=== PATIENT | female | born 1980 | race Caucasian/White ===

== ENCOUNTER 2018-01-19 16:35 | Emergency (ER) | payer SELFPAY ==
[2018-01-19 16:37] VITALS: BP 102/67; PULSE 115; RESP 16; TEMP 36.9; BMI 22.9
--- NOTE | 2018-01-19 17:00 | ED.DCSUM_ITS ---
History of Present Illness Chief Complaint: Complaint Informant: Patient Onset: Weeks - 1 Context: Gradual Onset Timing: Continuous Quality: burning dysuria Current Severity: Moderate Maximum Severity: Moderate Worsened by: urinating Associated Symptoms: left side pain, nausea, back pain Narrative: Patient started having dysuria and frequency about a week ago, she did not see anyone for it or take any antibiotics, she states she then gradually started developing left side pain that goes into her back, was much worse last night and it is today, as well as nausea. No fevers that she knows of. No history of abdominal surgeries. States that the pain is constant and not colicky although it has let up today. 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 She denies any vaginal discharge or other symptoms there now. - Past Medical History (1) Asthma Status: Chronic Past Medical History - Allergies and Home Meds Allergies/Adverse Reactions: Allergies No Known Allergies Allergy (Verified 06/08/17 19:35) Home Medications: Home Medications Medication Instructions Recorded Albuterol Aerosols [Ventolin 2.5 mg INHALATION Q4H PRN PRN 08/30/16 Aerosols] Albuterol Inhaler [Ventolin Hfa 2 puff INHALATION Q4H PRN PRN 08/30/16 (SP)] Mometasone Furoate [Asmanex 220 200 mcg INHALATION BID 08/30/16 mcg Twisthaler] Mometasone Furoate [Asmanex] 220 mcg IH Q12H #1 aer.pow.[email or web address] 01/19/18 Phenazopyridine [Pyridium] 100 mg PO TID #6 tab 01/19/18 Smz/Tmp Ds [Bactrim Ds] 1 tab PO BID #28 tab 01/19/18 Primary Care Physician: Nichole Morse NP-C [Primary Care Provider] - 3-5 Days if not improving Surgical History: no surgical history Smoking Status: Never smoker Review of Systems All systems negative except as indicated Gastrointestinal: Reports: Abdominal pain, Nausea, Diarrhea - x 3-4d. Denies: Vomiting, Melena, Hematochezia Genitourinary: Reports: Dysuria, Frequency. Denies: Hematuria Musculoskeletal: Reports: Back pain Physical Exam Vital Signs/Narrative: Vital Signs Temp Pulse Resp BP 01/19/18 16:37 98.4 F 115 H 16 102/67 Inital Vital Signs reviewed: Yes General: Well nourished, Well developed, - - NAD Head: Normocephalic, Atraumatic Eyes: Perrl, EOMI Neck: Supple, Nontender Cardiovascular: Regular rate, Regular rhythm, No murmurs, Tachycardia - mild Respiratory: No distress, CTA bilaterally, Chest nontender Abdomen: Soft, Nondistended, Normal bowel sounds, Tender - suprapubic only. Negative for: Guarding, Rebound tenderness Back: Nontender, Normal Inspection. Negative for: CVA tenderness, Spinal tenderness Skin: Normal color, No rash Neurological: Alert, Oriented x3, Cranial nerves II-XII grossly intact, Normal Strength, Normal Sensation, Normal Gait Psychological: Normal affect Diagnostic/Tx/Re-eval - Medical Decision Making is negative. Urinalysis is consistent with infection. Given her symptoms and history, I suspect this is all pyelonephritis. All of her symptoms started with urinary symptoms. I do not think she needs testing to look for other problems right now, such as diverticulitis to cause left lower quadrant discomfort, she has no tenderness in that area just in the suprapubic region. She is relatively well-appearing, has not been vomiting, can tolerate oral tablets, and is not . Outpatient treatment is reasonable, will start her on a two-week course of Bactrim and send a culture. Given Zofran, Toradol, and a shot of Rocephin here prior to discharge. Advise close outpatient follow-up or returning if worse or not improving after 3 or 4 days. She is comfortable with that plan. In addition, she states she has asthma and is out of her Asmanex inhaler and asking for a refill prescription. ED Disposition - Plan for ED Patient: Disposition: Home or Assisted Living Chief Complaint: Complaint Diagnosis: Pyelonephritis, Encounter for medication refill Instructions: ED Kidney Infec Female Prescriptions: Mometasone Furoate [Asmanex] 220 mcg IH Q12H #1 aer.pow.ba Smz/Tmp Ds [Bactrim Ds] 1 tab PO BID #28 tab Phenazopyridine [Pyridium] 100 mg PO TID #6 tab Referrals: Nichole Morse NP-C [Primary Care Provider] - 3-5 Days if not improving
[2018-01-19] MEDS: Ondansetron ODT 4 MG Tablet 8 MG PO (17:04)
[2018-01-19 17:24] LABS: Mucous, Urine 0 SEEN /hpf (<or=2+)
[2018-01-19 17:27] LABS: Color, Urine Yellow (Yellow); Glucose, Dipstick Normal (Normal); Ketone-Dipstick 5 mg/dl (Negative); Leukocyte Esterase-Dipstick 500 /ul (Negative); Nitrite-Dipstick Positive (Negative); Occult Blood-Urine 150 /ul (Negative); Protein-Dipstick 100 mg/dl (Negative); Urine Bilirubin Dipstick Negative (Negative); Urine Clarity Cloudy (Clear); Urine Urobilinogen Normal (Normal)
[2018-01-19 17:32] LABS: Internal QC Validated? YES +Cl - CLEAR BKGD; Pregnancy, Urine Negative Negative
[2018-01-19 18:06] LABS: Bacteria 1+ /hpf (None Seen); Red Blood Cells-Urine 50-100 SEEN /hpf (0-5); Squamous Epithelial Cells - UA 5-10 SEEN /hpf (5-10); White Blood Cells >100 SEEN /hpf (0-5)
[2018-01-19] MEDS: Ketorolac 60 MG/2 ML Vial IM (18:28)
[2018-01-19] MEDS: Ceftriaxone 500 MG Vial IM (18:28)
[2018-01-19 18:40] VITALS: BP 126/54; PULSE 73; RESP 18; O2SAT 97
--- NOTE | 2018-01-19 18:41 | ED.RN ---
THIS NURSE REVIEWED D/C INSTRUCTIONS WITH PT. PT VERBALIZED UNDERSTANDING OF INSTRUCTIONS. PT DENIES FURTHER NEEDS OR QUESTIONS AT THIS TIME. PT AMBULATES FROM ROOM ON OWN WITHOUT ASSISTANCE FROM STAFF
== END 2018-01-19 18:42 | disposition home or self-care (01) ==
PROVIDERS: Emergency Provider Emergency Medicine; Family Provider Nurse Practitioner; PCP Nurse Practitioner
DX: N12 Tubulo-interstitial nephritis, not specified as acute or chronic (principal); Z76.0 Encounter for issue of repeat prescription; J45.909 Unspecified asthma, uncomplicated
CPT/HCPCS: 81001; 81025; 87086; 87088; 87186; 96372; 99283

== ENCOUNTER 2018-01-22 14:59 | Emergency (ER) | payer SELFPAY ==
[2018-01-22 15:00] VITALS: BP 101/64; PULSE 77; RESP 16; TEMP 36.8; O2SAT 98; BMI 23.3
== END 2018-01-22 16:36 | disposition left against medical advice (07) ==
LOC: ED 15:56
PROVIDERS: Emergency Provider Emergency Medicine; Family Provider Nurse Practitioner; PCP Nurse Practitioner
DX: R51 Headache (principal)

== ENCOUNTER 2018-06-03 12:17 | Emergency (ER) | payer SELFPAY ==
[2018-06-03 12:19] VITALS: BP 127/68; PULSE 86; RESP 16; TEMP 36.9; O2SAT 99; BMI 23.8
--- NOTE | 2018-06-03 13:01 | ED.DCSUM_ITS ---
- ER Visit Summary Date of Service: 06/03/18 Chief Complaint: Right middle finger redness History of Present Illness: The patient is a 37 F presenting with redness around her right middle finger nail. This started 2 days ago. She states she initially had a hangnail in that area. Then noticed increasing redness and swelling. She states she also does bite her nails. She denies fever or other complaints. Physical Examination: Vitals are stable. Patient is afebrile. Alert no acute distress. HEENT exam is unremarkable. Neck is supple. Lungs are clear and equal bilaterally. Heart is regular rate and rhythm. Extremities right middle finger paronychia with no evidence of felon. Skin is warm and dry. Remainder of exam is unremarkable. Emergency Department Course and Treatment: Digital block was performed. Incised with 11 blade. Pus was drained. Irrigated with saline. Patient was given Bactrim and Keflex. Advised to follow-up with primary care physician. Advised return to ED for worsening complaints. Disposition: Discharge home Impression: Right middle finger paronychia, I&D This note was generated with [employer] dictation software. It may contain incorrect words, spelling, and punctuation that were not noted in review of the chart prior to signing ED Disposition - Plan for ED Patient: Chief Complaint: Abscess Referrals: Nichole Morse NP-C [Primary Care Provider] -
--- NOTE | 2018-06-03 14:12 | ED.DEP ---
ED Disposition - Plan for ED Patient: Chief Complaint: Abscess Instructions: ED Fingernail Infec Prescriptions: Cephalexin [Keflex] 500 mg PO Q6 #28 capsule Smz/Tmp Ds [Bactrim Ds] 1 tablet PO BID #14 tablet Referrals: Nichole Morse, PATTERN GRADER SUPERVISOR-C [Primary Care Provider] -
[2018-06-03] MEDS: Cephalexin 250 MG Capsule 500 MG PO (14:34)
[2018-06-03] MEDS: Smz/Tmp Ds Tablet 1 TABLET PO (14:34)
== END 2018-06-03 14:40 | disposition home or self-care (01) ==
PROVIDERS: Emergency Provider Emergency Medicine; Family Provider Nurse Practitioner; PCP Nurse Practitioner
DX: L03.011 Cellulitis of right finger (principal)
CPT/HCPCS: 10060; 99284

== ENCOUNTER 2018-09-11 08:20 | Emergency (ER) | payer MEDICAID, SELFPAY ==
[2018-09-11 08:21] VITALS: BP 130/83; PULSE 86; RESP 18; TEMP 36.6; O2SAT 100; BMI 22.8
--- NOTE | 2018-09-11 08:39 | ED.VISSUMM ---
- ER Visit Summary Date of Service: 09/11/18 Chief Complaint: Back pain History of Present Illness: The patient is a 38 F currently about 11 weeks . She is Ab0. Patient denies any complications of her . She is having no vaginal bleeding or discharge. She is having no abdominal pain. She denies any dysuria. Or fever. States that around 8:00 this morning she bent over to help lift the child and pulled muscles in her lower back. She denies any radiation of pain or numbness to her lower extremities. She is never had any back surgeries or degenerative disc disease. She denies any bowel or bladder incontinence or weakness the lower extremities. Physical Examination: Well-appearing 38-year-old female. No acute distress. Vital signs are stable and afebrile. H EENT exam unremarkable. Neck nontender. Lungs clear to auscultation bilaterally. Heart regular rate and rhythm no murmur. Abdomen is soft. Nontender. Nondistended. Normal bowel sounds no peritoneal signs. She does have an enlarged gravid uterus. Extremities she moves all 4. Neurovascularly intact. 5 out of 5 electrical timing device calibrator strength bilateral hands. Dorsi plantar flexion intact. No cauda equina. No saddle anesthesia. Normal medial thigh sensation. Back the cervical, thoracic and lumbar spine are nontender. She has. Lumbar soft tissue tenderness consistent with a lumbar myofascial strain. There is no ecchymosis or bruising. No signs of trauma. No redness or warmth. Exam is consistent with lumbar strain. Neurologic exam normal. No motor weakness or loss of sensation. Test Results: None Emergency Department Course and Treatment: Patient and I went over what she can do for her back. Given that she is currently about 10 or 11 weeks I explained to her that muscle relaxants would not be a good option at this time. Treatment Plan: Tylenol as needed. Warm soaks. Massage. Ice. Disposition: Discharge Impression: Low back strain First trimester This note was generated with [employer] dictation software. It may contain incorrect words, spelling, and punctuation that were not noted in review of the chart prior to signing ED Disposition - Plan for ED Patient: Chief Complaint: Back Referrals: Nichole Morse, JELANI-C [Primary Care Provider] -
--- NOTE | 2018-09-11 08:42 | ED.DCSUM_ITS ---
- ER Visit Summary Date of Service: 09/11/18 Chief Complaint: Back pain History of Present Illness: The patient is a 38 F currently about 11 weeks . She is Ab0. Patient denies any complications of her . She is having no vaginal bleeding or discharge. She is having no abdominal pain . She denies any dysuria. Or fever. States that around 8:00 this morning she bent over to help lift the child and pulled muscles in her lower back. She denies any radiation of pain or numbness to her lower extremities. She is never had any back surgeries or degenerative disc disease. She denies any bowel or bladder incontinence or weakness the lower extremities. Physical Examination: Well-appearing 38-year-old female. No acute distress. Vital signs are stable and afebrile. H EENT exam unremarkable. Neck nontender. Lungs clear to auscultation bilaterally. Heart regular rate and rhythm no murmur. Abdomen is soft. Nontender. Nondistended. Normal bowel sounds no peritoneal signs. She does have an enlarged gravid uterus. Extremities she moves all 4. Neurovascularly intact. 5 out of 5 network cabler strength bilateral hands. Dorsi plantar flexion intact. No cauda equina. No saddle anesthesia. Normal medial thigh sensation. Back the cervical, thoracic and lumbar spine are nontender. She has. Lumbar soft tissue tenderness consistent with a lumbar myofascial strain. There is no ecchymosis or bruising. No signs of trauma. No redness or warmth. Exam is consistent with lumbar strain. Neurologic exam normal. No motor weakness or loss of sensation. Test Results: None Emergency Department Course and Treatment: Patient and I went over what she can do for her back. Given that she is currently about 10 or 11 weeks I explained to her that muscle relaxants would not be a good option at this time. Treatment Plan: Tylenol as needed. Warm soaks. Massage. Ice. Disposition: Discharge Impression: Low back strain First trimester This note was generated with [employer] dictation software. It may contain incorrect words, spelling, and punctuation that were not noted in review of the chart prior to signing ED Disposition - Plan for ED Patient: Chief Complaint: Back Referrals: Nichole Morse, JELANI-C [Primary Care Provider] -
--- NOTE | 2018-09-11 08:42 | ED.DEP ---
ED Disposition - Plan for ED Patient: Disposition: Home or Assisted Living Chief Complaint: Back Instructions: ED Sprain Strain Lumbar Referrals: Nichole Morse NP-C [Primary Care Provider] - As Needed Additional Instructions: Tylenol for pain. Ice to the back. Shower and warm soaks.
[2018-09-11] MEDS: Acetaminophen 500 MG Tablet 1000 MG PO (08:53)
--- OUTSIDE RECORDS SUMMARY | 2018-11-15 22:10 | XMS RPT_ITS ---
:1980 Author Organization OHIP Care Team Providers Name Role Phone [place] BAILING MACHINE OPERATOR-C, Nichole Primary Care Unavailable Tom Flowers Attending Unavailable Blaire Cesar Attending Unavailable [place] BAILING MACHINE OPERATOR-C, Nichole Referring Unavailable [place] BAILING MACHINE OPERATOR-C, Nichole Primary Care Unavailable LISSET ALICEA Attending Unavailable [place] BAILING MACHINE OPERATOR-C, Nichole Primary Care Unavailable Hailee Magaña Attending Unavailable [place] BAILING MACHINE OPERATOR-C, Nichole Primary Care Unavailable Hailee Magaña Attending Unavailable Blaire Cesar Attending Unavailable [place] BAILING MACHINE OPERATOR-C, Nichole Primary Care Unavailable Blaire Cesar Referring Unavailable PROBLEMS PROBLEMS DATE TYPE CONDITION / CODE ATTENDING STATUS SOURCE 09/18/2018 Unknown Z34.90 - Blaire Cesar Active Stephanie Encounter for [facility] supervision of [facility] normal , Repository unspecified, unspecified trimester / Z34.90(ICD-10) PROCEDURES PROCEDURES No Procedure Records FoundRESULTS RESULTS CT/NG WC BY PCR Collected: 09/18/2018 Status: F Source: [place] 5:10 PM [facility] REPOSITORY TYPE CODE TESTS RESULT OUT OF RANGE REFERENCE UNITS LAB L8200.2100 Negative Normal Chlam Negative Trac PCR LAB L8200.2200 Negative Normal NG by Negative PCR Performed By: #### L8200.2000 #### [facility] [address] [place], [address] SHOW HOST/HOSTESS OFFICE VISIT Observed: 09/18/2018 Status: F Source: [place] REPORT 3:12 PM [facility] REPOSITORY [facility] [address] [place] [address] OFFICE VISIT Date of Service: 09/18/18 MR#: [id number] Acct: [id number] Name: BRITNEY PEREZ Rep #: [id number] : 1980 Provider: JELANI Cesar Age/Sex: 38/F [place] [facility] [place]: Signed Intake Vital Signs09/18/18 Body Mass Index (BMI) 22.8 09/18/18 Height 5 ft 8 in 09/18/18 Weight: 170 lb 6 oz 09/18/18 Body Mass Index (BMI) 25.9 09/18/18 Blood Pressure 102/62 Intake Visit Reasons: NOB - LMP 06/06/18 [employer] Required: No Is patient in pain?: No Allergies No Known Allergies Allergy (Verified 09/18/18 13:31) Medications Pnv No.95/Ferrous Fum/Folic AC [ Caplet] 1 ea PO DAILY 09/11/18 [History Confirmed 09/18/18] ondansetron HCl 4 mg tablet 4 mg PO Q6H PRN #60 tab 09/18/18 [Rx Confirmed 09/18/18] Last Menstral Period: 06/06/18 Zika: Zika virus screening: Negative : No PFSH PFSH Family History Grandmother Hypertension Myocardial infarction Social History number of children: 2 current occupational status: employed current occupation: [employer] Smoking Status: Never smoker alcohol intake: never substance use type: does not use seatbelt use: always do you feel safe at home: Yes additional social history: PAUL Benavidez in [place] Pregancy History 3 Elective abortions Hx Para 2 Spontaneous abortions Past Pregnancies Del. DateName GA/Weeks Outcome Route Bth WeighInfant GeLabor LgtAnesthesiDel LocatProvider FOB t n h a n HPI NOB - LMP 06/06/18: Details: BRITNEY PEREZ is a 38 year old who presents for New OB visit. OB Visit Menstrual History Last Menstral Period: 06/06/18 Reported LMP: approximate (month known) Normal amount/duration: Yes On hormonal BC at conception: No hCG+: 07/15/18 Antepartum Record Genetic Screening: Congenital Heart Defect: Other, Neural Tube Defect: Other, Hemoglobinopathy Or Carrier: Other, Cystic Fibrosis: Other, Chromosome Abnormality: Other, Akash-Sachs: Other, Hemophilia: Other, Intellectual Disability/Autism: Other, Recurrent Loss/Stillbirth: Other, Other Structural Defect: Other, Other Genetic Disease: Other, Maternal Metabolic Disorder: Other Comments/Counseling: Reviewed and negative Infection History: Live with someone with TB or Exposed to TB: No, Patient or Partner has history of Genital Herpes: No, Rash or Viral illness since last mentrual period: No, Prior GBS-Infected child: No, History of STD: No, HIV Infection: No, History of Hepatitis: No, Recent travel outside of [place]: No, Concern for Hep exposure: No, Varicella immune: Yes (had chicken pox) Medical History Medical History: Positive: History of abnormal pap (neg colp. No treatment), Negative: Diabetes, Hypertension, Heart disease, Auto-immune disorder, Kidney disease/UTI, Neurologic/epilepsy, Psychiatric, Depression/ depression, Hepatitis/liver disease, Varicosities/phlebitis, Thyroid dysfunction, Trauma/domestic violence, History of blood transfusions, D (Rh) Sensitized, Pulmonary (e.g.,TB,Asthma), Seasonal allergies, Drug/latex allergies/reactions, Breast, Nurses Supervisor surgery, Operations/hospitalizations, Anesthetic complications, Uterine anomaly/ludmila, Infertility, Anti-retroviral treatment, Relevant family history, Other ROS Const Reports as per HPI Card Denies chest pain, Denies shortness of breath Resp Denies shortness of breath GI Denies change in stools Denies difficulty urinating, Denies abnormal vaginal bleeding, Denies vaginal odor, Denies vaginal itching, Denies vaginal discharge Exam Const General: cooperative, healthy appearing, well developed Nutritional Appearance: average body habitus, well nourished Orientation: oriented x3 Neck Neck: normal visual inspection Neck mass: No Thyroid: thyroid normal Chest Chest palpation AND inspection: normal inspection of the chest Breast inspection: normal inspection of the breasts, normal inspection of the axillae Resp Effort AND Inspection: normal respiratory effort GI Inspection: normal to inspection Palpation: soft, nontender, no masses External Female Exam: normal external appearance, normal appearance of the urethra Urethra: normal appearance of the urethra Speculum Exam - Vagina: normal appearance of the vagina, normal vaginal discharge Speculum Exam - Cervix: normal appearance of the cervix, closed cervix, other (thin prep pap with reflex HPV, GCC collected) Bimanual Exam- Vagina AND Uterus: normal bimanual exam, uterine shape normal, uterine size normal (12 weeks) Bimanual Exam- Adnexa, other: normal adnexae, no adnexal masses, adnexae non-tender Other: US per Dr. Laws confirming WOODROW 03/13/19 Skin General: no rashes or lesions noted, turgor normal Assessment AND Plan Problems 1. Supervision of high risk in second trimester O09.92 2. Advanced maternal age during 3. 14 weeks gestation of Z3A.14 Plans NIPT after confirms jorge. M US ordered Plan Patient oriented to practice and discussed care expectations and screenings. ACOG book offered to patient. labs and 19-20 week anatomy ultrasound ordered Genetic screening offered to patient and patient chose: NIPT RTO 4 weeks Orders Orders: Medications New: Coding Level of Care Code Off vis,new,level 4 Diagnoses Supervision of high risk in second trimester O09.92 Advanced maternal age during 14 weeks gestation of Z3A.14 Weeks of gestation: 14 weeks 09/18/18 1512 <Electronically signed by Blaire COVARRUBIAS> Date Blaire COVARRUBIAS Cosigner Signature: Date (if applicable) CC: CBC W/DIFF, AUTOMATED Collected: 09/18/2018 Status: F Source: [place] 2:28 PM [facility] REPOSITORY TYPE CODE TESTS RESULT OUT OF RANGE REFERENCE UNITS LAB L100.1000 4.4-11.0 K/mm3 Normal WBC 8.1 LAB L100.1200 4.2-5.4 M/mm3 Low RBC 3.82 LAB L100.1300 12.0-15.0 g/dl Low HGB 11.7 LAB L100.1400 37-47 % Low HCT 35.3 LAB L100.1500 81-99 fL Normal MCV 92.4 LAB L100.1600 27.0-32.0 pg Normal MCH 30.6 LAB L100.1700 32-36 g/gl Normal MCHC 33.1 LAB L100.1810 11.6-14.6 % Normal RDW CV 13.3 LAB L100.1820 35.1-43.9 fl High RDW SD 44.2 LAB L100.1900 150-450 K/mm3 Normal PLT 205 LAB L100.2000 6.2-12.0 fl Normal MPV 11.1 LAB L100.2100 47-70 % High NEUT% 80.7 LAB L100.2200 19-41 % Low LY% 12.0 LAB L100.2300 0-10 % Normal MONO% 5.4 LAB L100.2400 0-5 % Normal EO% 1.2 LAB L100.2500 0-1 % Normal BASO% 0.1 LAB L100.2550 0.0-0.9 % Normal IM GRAN % 0.600 Result Comment: IG% - Immature Granulocytes (promyelocytes, myelocytes and metamyelocytes) > 1% indicates that a LEFT SHIFT is Present. LAB L100.2620 2.0-7.7 X10 3/uL Normal Absolute Neut 6.6 LAB L100.2720 0.83-4.51 X10 3/ul Normal Absolute Lymph 0.98 Performed By: #### L100.0100 #### [facility] [address] [place], [place], [id number] RUBELLA IGG Collected: 09/18/2018 Status: F Source: [place]KELL 2:28 PM [facility] REPOSITORY TYPE CODE TESTS RESULT OUT OF RANGE REFERENCE UNITS LAB L509.4000 IU/mL Normal Rubella IgG 136.2 Result Comment: Antibody results Interpretation of Immune Status < 5 IU/ml Presumed Non-immune 5 - < 10 IU/ml Equivocal > or = 10 IU/ml Presumed Immune Performed By: #### L509.4000, L3890.6005 #### [facility] [address] [place], [address] HIV - [facility] Collected: 09/18/2018 Status: F Source: [place] 2:28 PM [facility] REPOSITORY TYPE CODE TESTS RESULT OUT OF RANGE REFERENCE UNITS LAB L3890.6005 Nonreactive Normal HIV - [facility] Non-Reactive Performed By: #### L509.4000, L3890.6005 #### [facility] [address] [facility] [address] TYPE AND SCREEN Collected: 09/18/2018 Status: F Source: HASKELL 2:28 PM [facility] REPOSITORY Order Comment: Reason for Type AND Screen/Red Cells: ANEMIA TYPE CODE TESTS RESULT OUT OF RANGE REFERENCE UNITS LAB B10.0800 O Normal BLOOD TYPE GEL POSITIVE LAB B100.4000 Normal Antibody NEGATIVE Screen Performed By: #### B101.7450 #### [facility] [place], [address] RAPID PLASMIN REAGIN Collected: 09/18/2018 Status: F Source: HASKELL (RPR) 2:28 PM [facility] REPOSITORY TYPE CODE TESTS RESULT OUT OF REFERENCE UNITS RANGE LAB L700.5000 NONREACTIVE NONREACTIVE Normal RPR Performed By: #### L700.5000 #### [facility] [place], [address] EMERGENCY DEPARTMENT Observed: 09/11/2018 Status: F Source: HASKELL SUMMARY 4:05 PM [facility] REPOSITORY [facility] Medical Records Department [facility] [place] [address] Emergency Department Summary 09/11/18 0839 MR#: [id number] Acct: [id number] Name: BRITNEY PEREZ Rep #: [id number] : 1980 38 From: Tom Flowers MD PCP: Nichole Wagner Status: DEP ER - ER Visit Summary Date of Service: 09/11/18 Chief Complaint: Back pain History of Present Illness: The patient is a 38 F currently about 11 weeks . She is Ab0. Patient denies any complications of her . She is having no vaginal bleeding or discharge. She is having no abdominal pain. She denies any dysuria. Or fever. States that around 8:00 this morning she bent over to help lift the child and pulled muscles in her lower back. She denies any radiation of pain or numbness to her lower extremities. She is never had any back surgeries or degenerative disc disease. She denies any bowel or bladder incontinence or weakness the lower extremities. Physical Examination: Well-appearing 38-year-old female. No acute distress. Vital signs are stable and afebrile. H EENT exam unremarkable. Neck nontender. Lungs clear to auscultation bilaterally. Heart regular rate and rhythm no murmur. Abdomen is soft. Nontender. Nondistended. Normal bowel sounds no peritoneal signs. She does have an enlarged gravid uterus. Extremities she moves all 4. Neurovascularly intact. 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 Dorsi plantar flexion intact. No cauda equina. No saddle anesthesia. Normal medial thigh sensation. Back the cervical, thoracic and lumbar spine are nontender. She has. Lumbar soft tissue tenderness consistent with a lumbar myofascial strain. There is no ecchymosis or bruising. No signs of trauma. No redness or warmth. Exam is consistent with lumbar strain. Neurologic exam normal. No motor weakness or loss of sensation. Test Results: None Emergency Department Course and Treatment: Patient and I went over what she can do for her back. Given that she is currently about 10 or 11 weeks I explained to her that muscle relaxants would not be a good option at this time. Treatment Plan: Tylenol as needed. Warm soaks. Massage. Ice. Disposition: Discharge Impression: Low back strain First trimester This note was generated with [employer] dictation software. It may contain incorrect words, spelling, and punctuation that were not noted in review of the chart prior to signing ED Disposition - Plan for ED Patient: Chief Complaint: Back Referrals: Nichole Morse NP-C [Primary Care Provider] - What to do if you have Problems For any increased pain, shortness of breath, bleeding, nausea or vomiting, chest pain, or any unexpected problems, contact your Primary Care Provider. Call [facility] ([phone]) or report to the closest Emergency Room. Call 911 if necessary. 09/11/181604 <Electronically signed by Tom Flowers MD> Date Tom Flowers MD Cosigner Signature (If Indicated): Date CC: Nichole COVARRUBIAS DISCHARGE INSTRUCTION Observed: 09/11/2018 Status: F Source: HASKELL 4:05 PM [facility] REPOSITORY [facility] Medical Records Department [address] [place] [address] Discharge Instruction 09/11/18 0842 MR#: [id number] Acct: [id number] Name: BRITNEY PEREZ Rep #: [id number] : 1980 38 From: Tom Flowers MD PCP: Nichole Wagner Status: [facility] ER ED Disposition - Plan for ED Patient: Disposition: Home or Assisted Living Chief Complaint: Back Instructions: ED Sprain Strain Lumbar Referrals: Nichole Morse NP-C [Primary Care Provider] - As Needed Additional Instructions: Tylenol for pain. Ice to the back. Shower and warm soaks. What to do if you have Problems For any increased pain, shortness of breath, bleeding, nausea or vomiting, chest pain, or any unexpected problems, contact your Primary Care Provider. Call [facility] ([phone]) or report to the closest Emergency Room. Call 911 if necessary. 09/11/18 1604 <Electronically signed by Tom Flowers MD> Date Tom Robertson Signature (If Indicated): Date CC: Nichole Morse NP-Trudy DISCHARGE INSTRUCTION Observed: 06/03/2018 Status: F Source: STEPHANIE 2:14 PM [facility] REPOSITORY [facility] Medical Records Department [address] [place] [address] Discharge Instruction 06/03/18 1412 MR#: [id number] Acct: [id number] Name: BRITNEY PEREZ Rep #: [id number] : 1980 37 From: Hailee Magaña MD PCP: Nichole Wagner Status: REG ER ED Disposition - Plan for ED Patient: Chief Complaint: Abscess Instructions: ED Fingernail Infec Prescriptions: Cephalexin [Keflex] 500 mg PO Q6 #28 capsule Smz/Tmp Ds [Bactrim Ds] 1 tablet PO BID #14 tablet Referrals: Nichole Morse NP-C [Primary Care Provider] - What to do if you have Problems For any increased pain, shortness of breath, bleeding, nausea or vomiting, chest pain, or any unexpected problems, contact your Primary Care Provider. Call [facility] ([phone]) or report to the closest Emergency Room. Call 911 if necessary. 06/03/18 1414 <Electronically signed by Hailee Magaña MD> Date Hailee Robertson Signature (If Indicated): Date CC: Nichole COVARRUBIAS EMERGENCY DEPARTMENT Observed: 06/03/2018 Status: F Source: STEPHANIE SUMMARY 2:12 PM [facility] REPOSITORY [facility] Medical Records Department [address] [place] [address] Emergency Department Summary 06/03/18 1300 MR#: [id number] Acct: [id number] Name: BRITNEY PEREZ Rep #: [id number] : 1980 37 From: Hailee Magaña MD PCP: Nichole Wagner Status: REG ER - ER Visit Summary Date of Service: 06/03/18 Chief Complaint: Right middle finger redness History of Present Illness: The patient is a 37 F presenting with redness around her right middle finger nail. This started 2 days ago. She states she initially had a hangnail in that area. Then noticed increasing redness and swelling. She states she also does bite her nails. She denies fever or other complaints. Physical Examination: Vitals are stable. Patient is afebrile. Alert no acute distress. HEENT exam is unremarkable. Neck is supple. Lungs are clear and equal bilaterally. Heart is regular rate and rhythm. Extremities right middle finger paronychia with no evidence of felon. Skin is warm and dry. Remainder of exam is unremarkable. Emergency Department Course and Treatment: Digital block was performed. Incised with 11 blade. Pus was drained. Irrigated with saline. Patient was given Bactrim and Keflex. Advised to follow-up with primary care physician. Advised return to ED for worsening complaints. Disposition: Discharge home Impression: Right middle finger paronychia, I AND D This note was generated with [employer] dictation software. It may contain incorrect words, spelling, and punctuation that were not noted in review of the chart prior to signing ED Disposition - Plan for ED Patient: Chief Complaint: Abscess Referrals: Nichole Morse NP-C [Primary Care Provider] - What to do if you have Problems For any increased pain, shortness of breath, bleeding, nausea or vomiting, chest pain, or any unexpected problems, contact your Primary Care Provider. Call [facility] ([phone]) or report to the closest Emergency Room. Call 911 if necessary. 06/03/18 1412 <Electronically signed by Hailee Magaña MD> Date Hailee Magaña MD Cosigner Signature (If Indicated): Date CC: Nichole COVARRUBIAS EMERGENCY DEPARTMENT Observed: 01/19/2018 Status: F Source: HASKELL SUMMARY 5:40 PM [facility] REPOSITORY [facility] Medical Records Department [address] [place] [address] Emergency Department Summary 01/19/18 1655 MR#: [id number] Acct: [id number] Name: BRITNEY PEREZ Rep #: [id number] : 1980 37 From: Lisset Alicea MD PCP: Nichole Wagner Status: REG ER History of Present Illness Chief Complaint: Complaint Informant: Patient Onset: Weeks - 1 Context: Gradual Onset Timing: Continuous Quality: burning dysuria Current Severity: Moderate Maximum Severity: Moderate Worsened by: urinating Associated Symptoms: left side pain, nausea, back pain Narrative: Patient started having dysuria and frequency about a week ago, she did not see anyone for it or take any antibiotics, she states she then gradually started developing left side pain that goes into her back, was much worse last night and it is today, as well as nausea. No fevers that she knows of. No history of abdominal surgeries. States that the pain is constant and not colicky although it has let up today. 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 She denies any vaginal discharge or other symptoms there now. - Past Medical History (1) Asthma Status: Chronic Past Medical History - Allergies and Home Meds Allergies/Adverse Reactions: Allergies No Known Allergies Allergy (Verified 06/08/17 19:35) Home Medications: Home Medications Medication Instructions Recorded Albuterol Aerosols [Ventolin 2.5 mg INHALATION Q4H PRN PRN 08/30/16 Primary Care Physician: Nichole Morse NP-C [Primary Care Provider] - 3-5 Days if not improving Surgical History: no surgical history Smoking Status: Never smoker Review of Systems All systems negative except as indicated Gastrointestinal: Reports: Abdominal pain, Nausea, Diarrhea - x 3-4d. Denies: Vomiting, Melena, Hematochezia Genitourinary: Reports: Dysuria, Frequency. Denies: Hematuria Musculoskeletal: Reports: Back pain Physical Exam Vital Signs/Narrative: Vital Signs 01/19/18 16:37 98.4 F 115 H 16 102/67 Inital Vital Signs reviewed: Yes General: Well nourished, Well developed, - - NAD Head: Normocephalic, Atraumatic Eyes: Perrl, EOMI Neck: Supple, Nontender Cardiovascular: Regular rate, Regular rhythm, No murmurs, Tachycardia - mild Respiratory: No distress, CTA bilaterally, Chest nontender Abdomen: Soft, Nondistended, Normal bowel sounds, Tender - suprapubic only. Negative for: Guarding, Rebound tenderness Back: Nontender, Normal Inspection. Negative for: CVA tenderness, Spinal tenderness Skin: Normal color, No rash Neurological: Alert, Oriented x3, Cranial nerves II-XII grossly intact, Normal Strength, Normal Sensation, Normal Gait Psychological: Normal affect Diagnostic/Tx/Re-eval - Medical Decision Making is negative. Urinalysis is consistent with infection. Given her symptoms and history, I suspect this is all pyelonephritis. All of her symptoms started with urinary symptoms. I do not think she needs testing to look for other problems right now, such as diverticulitis to cause left lower quadrant discomfort, she has no tenderness in that area just in the suprapubic region. She is relatively well-appearing, has not been vomiting, can tolerate oral tablets, and is not . Outpatient treatment is reasonable, will start her on a two-week course of Bactrim and send a culture. Given Zofran, Toradol, and a shot of Rocephin here prior to discharge. Advise close outpatient follow-up or returning if worse or not improving after 3 or 4 days. She is comfortable with that plan. In addition, she states she has asthma and is out of her Asmanex inhaler and asking for a refill prescription. ED Disposition - Plan for ED Patient: Disposition: Home or Assisted Living Chief Complaint: Complaint Diagnosis: Pyelonephritis, Encounter for medication refill Instructions: ED Kidney Infec Female Prescriptions: Mometasone Furoate [Asmanex] 220 mcg IH Q12H #1 aer.pow.ba Smz/Tmp Ds [Bactrim Ds] 1 tab PO BID #28 tab Phenazopyridine [Pyridium] 100 mg PO TID #6 tab Referrals: Nichole Morse NP-C [Primary Care Provider] - 3-5 Days if not improving What to do if you have Problems For any increased pain, shortness of breath, bleeding, nausea or vomiting, chest pain, or any unexpected problems, contact your Primary Care Provider. Call [facility] ([phone]) or report to the closest Emergency Room. Call 911 if necessary. 01/19/18 1740 <Electronically signed by Lisset Alicea MD> Date Lisset Alicea MD Cosigner Signature (If Indicated): Date CC: Nichole COVARRUBIAS ,URINE Collected: 01/19/2018 Status: F Source: HASKELL 5:00 PM [facility] REPOSITORY TYPE CODE TESTS RESULT OUT OF REFERENCE UNITS RANGE LAB L400.8000 Negative Normal HCGUQUAL Negative Result Comment: Very dilute urine specimens, as indicated by a low specific gravity, may not contain business representative levels of hCG. If is still suspected, a first morning urine specimen should be collected 48 hours later and tested. Performed By: #### L400.7600 #### [facility] [address] [place], [address] URINALYSIS, COMPLETE Collected: 01/19/2018 Status: F Source: HASKELL 5:00 PM [facility] REPOSITORY Order Comment: How was Urine Obtained? CLEAN CATCH TYPE CODE TESTS RESULT OUT OF RANGE REFERENCE UNITS LAB L400.3000 Yellow COLOR Normal Yellow LAB L400.3050 Clear Normal CLARITY Cloudy LAB L400.3200 Normal mg/dl Normal GLUCOSE, UR Normal LAB L400.3300 Negative mg/dL Normal BILIRUBIN URINE Negative LAB L400.3400 Negative mg/dl High 5 KETONE UR LAB L400.3465 1.002-1.030 Normal SP.GR. DIPSTX 1.020 LAB L400.3550 5.0 - 8.0 pH UR Normal 6.0 LAB L400.3600 Negative mg/dl High PROT DIPSTX 100 LAB L400.3700 Normal mg/dl Normal UROBILI Normal LAB L400.3750 Negative High NITRITE UR Positive LAB L400.3780 Negative /ul High OCCULT BLOOD-UR 150 LAB L400.3800 Negative /ul High LEUK ESTERASE 500 LAB L400.4050 0-5 /hpf WBC Normal >100 SEEN LAB L400.4100 0-5 /hpf Normal RBC-UA 50-100 SEEN LAB L400.4150 5-10 /hpf SQUAM Normal EPI 5-10 SEEN LAB L400.4300 None Seen /hpf 1+ Normal BACTERIA LAB L400.4350 <or=2+ /hpf 0 Normal MUCUS, URINE SEEN Performed By: #### L400.0001 #### [facility] [address] [facility] [place], [address] Observed: 01/19/2018 Status: F Source: HASKELL CULTURE, URINE 5:00 PM [facility] REPOSITORY Urine Culture ORGANISM 1: Presumptive E. coli Otto Count >100,000 Presumptive E. coli: REACTION Amoxacillin/Clavulanic Acid $ 16 I Ampicillin $ >=32 R Ampicillin/Sulbactam $ >=32 R Cefazolin $ <=4 S Cefepime $ <=1 S Ceftriaxone $ <=1 S Ciprofloxacin $ <=0.25 S ESBL - Ertapenim $$$ <=0.5 S Gentamicin $ <=1 S Imipenem *NF <=0.25 S Levofloxacin $ <=0.12 S Nitrofurantoin $ <=16 S Piperacillin/Tazobactam $$ <=4 S Tobramycin $ <=1 S Trimethoprim/Sulfametho $ <=20 S (NF) indicates non-formulary drug at [facility]. Approval by Infectious Disease Specialist required before non-formulary drugs may be ordered and/or dispensed. Performed By: #### M100.0650 #### [facility] [address] [facility] [place], [address] ALLERGIES ALLERGIES DATE TYPE / CODE NAME / CODE REACTION SEVERITY SOURCE 09/18/2018 Drug No Known Unknown [facility] Allergy/4160 Allergies/F00 Hospital 61401(SNOMED [id number](RXNOR Repository CT) M) ENCOUNTERS ENCOUNTERS ADMIT/DISCHARGE ACCOUNT ADMITTING ENCOUNTER LOCATION SOURCE NUMBER CLASS 09/18/2018 [id number] Ambulatory Stephanie Stephanie 1 [facility] ing:LABSPEC Repository 09/18/2018/ [id number] Ambulatory BMSBuilding:B [place] 9 1 [facility] Hospital Repository 09/11/2018/ [id number] Emergency [place] Stephanie 9 5 [facility] ing:ED Repository 06/03/2018/ [id number] Emergency [place] 8 5 [facility] ing:ED Repository 01/22/2018/ [id number] Emergency [place] 8 6 [facility] ing:ED Repository 01/19/2018/ [id number] Emergency Stephanie [place] 8 9 [facility] ing:ED Repository PAYERS PAYERS ENCOUNTER GUARANTOR PAYER SUBSCRIBER SOURCE 09/18/2018 BRITNEY L Primary NOT GIVENUNK Stephanie [id number] W Insurance:SELF PAY [address] Number: Effective Repository [id number]: ([phone]) Date:2018-09-18 () 09/18/2018 BRITNEY L Primary NOT GIVENUNK [place] [id number] W Insurance:SELF PAY [address] Number: Effective Repository [id number]: [phone]) Date:2018-09-18 () 09/11/2018 BRITNEY L Primary NOT GIVENUNK Stephanie [id number] W Insurance:SELF PAY [address] Number: Effective Repository [id number]: ([phone]) Date:2018-09-11 () 06/03/2018 BRITNEY L Primary NOT GIVENUNK Stephanie [id number] W Insurance:SELF PAY [address] Number: Effective Repository [id number]: ([phone]) Date:2018-06-03 () 01/22/2018 Britney Broderick Primary NOT GIVENUNK Stephanie [id number] W Insurance:SELF PAY [address] Number: Effective Repository [id number]: (216) Date:2018-01-22 () 01/19/2018 Britney rBoderick Primary NOT GIVENUNK [place] [id number] W Insurance:SELF PAY [address] Number: Effective Repository [id number]: [phone]) Date:2018-01-19 ()
== END 2018-09-11 09:04 | disposition home or self-care (01) ==
PROVIDERS: Emergency Provider Emergency Medicine; Family Provider Nurse Practitioner; PCP Nurse Practitioner
DX: O9A.211 Injury, poisoning and certain other consequences of external causes complicating pregnancy, first trimester (principal); S39.012A Strain of muscle, fascia and tendon of lower back, initial encounter; X50.9XXA Other and unspecified overexertion or strenuous movements or postures, initial encounter; Y93.9 Activity, unspecified; Y92.9 Unspecified place or not applicable; Y99.9 Unspecified external cause status; O21.9 Vomiting of pregnancy, unspecified; O09.521 Supervision of elderly multigravida, first trimester; Z3A.11 11 weeks gestation of pregnancy
CPT/HCPCS: 99283

== ENCOUNTER → 2018-09-18 14:23 | Outpatient (CLI) | payer MEDICAID, SELFPAY ==
[2018-09-18 13:38] VITALS: BMI 22.8
[2018-09-18 14:46] LABS: Absolute Lymphocyte Count 0.98 X10^3/ul (0.83-4.51); Absolute Neutrophil Count 6.6 X10^3/uL (2.0-7.7); Basophil# 0.01 X10^3/uL; Basophil% 0.1 % (0-1); Eosinophils% 1.2 % (0-5); Hematocrit 35.3 % (37-47); Hemoglobin 11.7 g/dl (12.0-15.0); Lymphocyte # 0.98 X10^3/ul (4.0); Mean Corp Hgb Conc 33.1 g/gl (32-36); Mean Corpuscular Hgb 30.6 pg (27.0-32.0); Mean Corpuscular Volume 92.4 fL (81-99); Mean Platelet Vol. 11.1 fl (6.2-12.0); Monocyte# 0.44 X10^3/uL; Monocyte% 5.4 % (0-10); Neutrophil # 6.56 X10^3/uL (2.7-7.7); Neutrophil % 80.7 % (47-70); Platelet Count 205 K/mm3 (150-450); RBC Distribution Width CV 13.3 % (11.6-14.6); RBC Distribution Width SD 44.2 fl (35.1-43.9); Red Blood Count 3.82 M/mm3 (4.2-5.4); White Blood Count 8.1 K/mm3 (4.4-11.0)
[2018-09-18 14:47] LABS: POSITIVE COUNT NO; POSITIVE DIFFERENTIAL NO; POSITIVE MORPHOLOGY NO
[2018-09-18 16:06] LABS: HIV - WCH Non-Reactive (Nonreactive); Rubella IgG 136.2 IU/mL
[2018-09-18 19:54] LABS: Chlamydia Trachomatis by PCR Negative (Negative); Neisserai gonorrhoeae by PCR Negative (Negative); Probe Check PASS; Sample Adequacy Control PASS; Specimen Processing Control PASS
[2018-09-19 01:11] LABS: Rapid Plasmin Reagin (RPR) NONREACTIVE (NONREACTIVE)
[2018-09-22 09:15] LABS: HEPATITIS B SURFACE AG Negative (Negative)
[2018-09-23 16:04] LABS: HPV APTIMA, High Risk Positive (Negative)
== END ==
LOC: PAVLAB 14:30 → LABSPEC 16:39
PROVIDERS: Family Provider Nurse Practitioner; PCP Nurse Practitioner; Referring Provider Nurse Practitioner Women's Health; Visit Provider Nurse Practitioner Women's Health
DX: Z34.90 Encounter for supervision of normal pregnancy, unspecified, unspecified trimester (principal); Z12.4 Encounter for screening for malignant neoplasm of cervix
CPT/HCPCS: 36415; 85025; 86592; 86703; 86762; 86850; 86900; 87086; 87340; 87491; 87591; 87624; 88175; G0145

== ENCOUNTER → 2018-10-20 | Outpatient (CLI) | payer MEDICAID, SELFPAY ==
[2018-10-20 16:22] VITALS: BMI 22.8
== END | disposition home or self-care (01) ==
LOC: LAB 17:19
PROVIDERS: Family Provider Nurse Practitioner; PCP Nurse Practitioner; Referring Provider Obstetrics & Gynecology; Visit Provider Obstetrics & Gynecology
DX: O09.522 Supervision of elderly multigravida, second trimester (principal); Z3A.00 Weeks of gestation of pregnancy not specified
CPT/HCPCS: 36415

== ENCOUNTER → 2018-10-27 16:08 | Outpatient (CLI) | payer MEDICAID, SELFPAY ==
[2018-10-20 16:22] VITALS: BMI 22.8
--- NOTE | 2018-10-27 16:13 | US_ITS ---
STUDY: SECOND AND THIRD TRIMESTER OBSTETRICAL ULTRASOUND REASON FOR EXAM: Female, 38 years old. Anatomy screen. LMP: June 06, 2018. TECHNIQUE: Transabdominal TECHNICAL QUALITY: Adequate. PRIOR ULTRASOUND: None. FINDINGS: There is a single intrauterine fetus. The fetus is in an transverse lie with the head on the maternal left side. There is demonstrated cardiac activity with a heart rate of 149 bpm. There is a normal amniotic fluid volume. The largest amniotic fluid pocket measures 4.7 cm. The placenta is anterior in location and is not low lying. There are Grade 1 placental changes. The cervix measures 5.8 cm in length. The bilateral adnexal regions are normal. BIOMETRY: BPD: 4.95 cm: 21 weeks, 0 days HC: 18.31 cm: 20 weeks, 5 days AC: 15.47 cm: 20 weeks, 5 days FL: 3.26 cm: 20 weeks, 2 days CI: 83 FL/BPD: 66 FL/HC: FL/AC: 21 HC/AC: 1.18 age by current US: 20 weeks, 5 days. WOODROW by current US: March 11, 2019. Estimated weight: 356 grams, +/- 52 grams, 40 %. Age by LMP: 20 weeks, 3 days. WOODROW by LMP: March 13, 2019. ANATOMY: Gender: Female Cranium: Normal lateral ventricles. Normal choroid plexus. Normal cerebellum. Normal cisterna magna. Normal face, nose and lips. Chest: Normal 4-chamber heart. Abdomen/Pelvis: Normal diaphragm. Normal stomach. Normal abdominal wall. Normal cord insertion. Normal 3 vessel cord. Normal kidneys. Normal bladder. Spine: Normal cervical spine. Normal thoracic spine. Normal lumbar spine. Normal sacrum. Extremities: Normal bilateral upper extremities. Normal bilateral lower extremities. US/OB Anatomy Scan IMPRESSION: 1. Live single intrauterine at 20 weeks, 5 days. WOODROW is March 11, 2019. 2. EFW 356 g. 3. Adequate amniotic fluid. 4. Anterior grade 1 placenta. 5. No visualized abnormality. 6. Transverse presentation with head to the maternal left. Electronically Signed: Rodriguez Cano DO at 23:39 EST Tel [phone], Service support ,
== END ==
PROVIDERS: Family Provider Nurse Practitioner; PCP Nurse Practitioner; Referring Provider Obstetrics & Gynecology; Visit Provider Obstetrics & Gynecology
DX: Z36.9 Encounter for antenatal screening, unspecified (principal)
CPT/HCPCS: 76805

== ENCOUNTER 2019-02-28 08:00 | Inpatient (IN) | payer MEDICAID, SELFPAY ==
[2018-12-01 16:20] VITALS: BMI 22.8
[2019-02-28] MEDS: Lactated Ringers 1,000 ML 50 ML IV (08:00)
[2019-02-28 08:21] VITALS: BMI 32.4
--- NOTE | 2019-02-28 08:21 | PCM.HP.OB ---
- Problem List (1) Advanced maternal age during Status: Acute History Date of Admission: 02/28/19 Final WOODROW: 03/13/19 Final WOODROW Source: US <20 weeks Gestational age: 38 Weeks and 1 Days History of this : This is a 38 year-old, G [3], P [2], at 38 weeks gestational age presenting to triage reporting onset of contractions at 6:00am today. Patient reports contractions are very regular and every couple of minutes and getting more intense. Patient denies any vaginal bleeding. Denies DFM or LOF. Medical History: Medical History (Last Reviewed 12/01/18 @ 15:39 by Mary Beth White) Allergic rhinitis J30.9 Cervical radiculopathy M54.12 GERD (gastroesophageal reflux disease) K21.9 Ovarian cyst N83.209 depression O99.345, F53.0 Surgical History: Surgical History (Last Reviewed 12/01/18 @ 15:39 by Mary Beth White) History of tonsillectomy and adenoidectomy Z98.890 [place] teeth extracted K08.409 thyroid left fine needle Allergies No Known Allergies Allergy (Verified 12/01/18 15:39) Home Medications: Home Medications Pnv No.95/Ferrous Fum/Folic AC [ Caplet] 1 ea PO DAILY 09/11/18 ondansetron HCl 4 mg tablet 4 mg PO Q6H PRN #60 tab 09/18/18 Smoking Status: Never smoker Alcohol: None Number of Fetus(es): 1 Heart Tracing: Baseline 140, moderate variability, + accels, no decels TOCO Analysis: Ctx q 2-3 minutes apart, palpate moderately strong History Past Pregnancies: Past Pregnancies Delivery Date Name GA/Weeks Outcome Route Weight Infant Gender Labor Length Anesthesia Delivery Location Provider FOB 03/2004 [facility] 38+6 Live 6#7oz M Epidural 04/2015 [place] 38+6 Live 7#5oz M 5 hours Natural Labs: O+ Abs Neg, CBC WNL, HIV NR, HepBsAg NEg, RPR NR, Thyroid Screening WNL, Syphilis Neg, Rubella Immune, 1 hour GCT = 95, GC/CT Neg/Neg, Urine Culture Neg, GBS Neg Expected Delivery Method: Spontaneous Vaginal Describe any other labor & delivery plans:: Would like an epidural if there is time - otherwise she will go natural Number of Visits: 10 visits with our office, HODAN from Dr. Laws's office at 26+ weeks Review of Systems Constitutional: Denies: Chills, Fever, Weight Change HEENT: Denies: Head Aches, Sinus Congestion, Sinus Drainage Cardiovascular: Denies: Chest Pain, Palpitations Respiratory: Denies: Cough, Shortness of breath at rest, Sputum production Gastrointestinal: Denies: Abdominal Pain, Nausea, Vomiting Genitourinary: Denies: Dysuria Musculoskeletal: Denies: Joint Pain, Joint Tenderness Skin: Denies: Rash, Wounds Neurological: Denies: Numbness, Tingling, Focal weakness Psychiatric: Denies: Anxiety, Depression, Homicidal Ideations, Suicidal Ideations Hematologic/ Lymphatic: Denies: Easy Bruising, Easy Bleeding Physical Exam Vitals: Normotensive and Afebrile - see nursing notes for vital signs General: Alert, Oriented x3, No apparent distress HEENT: Atraumatic, Normocephalic. Negative for: Thyromegaly, Lymphadenopathy Cardiovascular: Regular rate, Regular Rhythm Lungs: Clear to auscultation Abdomen: Bowel Sounds Present, Gravid Neurological: Deep Tendon Reflexes 2+/4 and Symmetrical, Neuro grossly intact CLASSIFICATION CONTROL CLERK: Normal external genitalia. Negative for: Vulvar lesions Estimated gestational size: Appropriate for gestational size Presentation: Cephalic - EFW = 7# Cervix Dilation (cm): 7 Station: -1 Effacement (%): 90 Assessment/Plan All Active Problems (Last Reviewed 12/01/18 @ 15:39 by Mary Beth White) ASCUS (atypical squamous cells of undetermined significance) on gynecologic Papanicolaou smear complicating , antepartum (Acute) (Acute) Supervision of high risk in second trimester (Acute) Advanced maternal age during (Acute) This is a 38 year-old, G [3], P [2], at 38+ weeks gestational age, Active Labor, Category I FHT. P: 1) Admit patient - Dr. Willard notified of admission 2) Expectant management at this time - patient will do NCB since she is so far dilated 3) Anticipate Rekah Atwood TAKE OFF MAN-CN
[2019-02-28 08:40] LABS: Absolute Lymphocyte Count 0.99 X10^3/ul (0.83-4.51); Absolute Neutrophil Count 6.3 X10^3/uL (2.0-7.7); Basophil# 0.01 X10^3/uL; Basophil% 0.1 % (0-1); Eosinophil# 0.07 X10^3/uL; Eosinophils% 0.9 % (0-5); Hematocrit 32.8 % (37-47); Hemoglobin 10.4 g/dl (12.0-15.0); Lymphocyte # 0.99 X10^3/ul (4.0); Lymphocyte % 12.3 % (19-41); Mean Corp Hgb Conc 31.7 g/gl (32-36); Mean Corpuscular Hgb 27.6 pg (27.0-32.0); Monocyte# 0.64 X10^3/uL; Neutrophil # 6.26 X10^3/uL (2.7-7.7); Neutrophil % 78.1 % (47-70); Platelet Count 164 K/mm3 (150-450); RBC Distribution Width CV 15.5 % (11.6-14.6); Red Blood Count 3.77 M/mm3 (4.2-5.4)
[2019-02-28 08:42] LABS: POSITIVE COUNT NO; POSITIVE DIFFERENTIAL NO; POSITIVE MORPHOLOGY NO
[2019-02-28] MEDS: Oxytocin 30 units/NS 500 ml 30 UNITS/500 ML IV.SOLN 334 UNITS IV (09:19)
--- NOTE | 2019-02-28 09:36 | OP.PCM_ITS ---
Problem List (1) Advanced maternal age during Status: Resolved Report of Operation Date of Procedure: 02/28/19 Pre-Operative Diagnosis: Active Labor Post-Operative Diagnosis: of viable girl baby Vaginal Delivery Maternal Presentation: Active Labor Amniotic Membrane Rupture Type: Artificial Amniotic Fluid Description: Moderate meconium Final WOODROW: 03/13/19 Final WOODROW Source: US <20 weeks Gestational age: 38 Weeks and 1 Days [place] doctor who attended delivery (if requested by OB): Carmenza Schilling Date of Procedure: 02/28/19 Pre-Operative Diagnosis: Active Labor Post-Operative Diagnosis: of viable girl Surgery/ Procedure Performed: Spontaneous Vaginal Delivery Type of Anesthesia: None Description of Procedure: Patient presented to labor / with BBOW. Patient progressed easily to C/C/0 station. AROM for meconium stained fluid done. Patient then pushed well with urge and delivered a viable girl baby at 0915 over intact perineum. delivered direct OP presentation. Respiratory and optical glass sawyer present at delivery for presence of meconium stained fluid. Infant with good tone, respirations and cry. Infant dried off and placed on maternal abdomen, mouth and nose bulb suctioned. Apgars 7 and 9. [place] exam per optical glass sawyer - on exam by this provider infant with short broad neck and low set ears noted. Peds to follow up and see if findings are more related to how was positioned in utero and from OP delivery. Umbilical cord clamped and cut once it stopped pulsing. Placenta delivered spontaneously via Bowser mechanism with maternal effort intact and with 3VC. Cord blood sample collected secondary to maternal blood type of O+. FF to massage, midline and 2FB below umbilicus. 3rd stage IV pitocin per protocol administered for active management of the 3rd stage. EBL = 250cc. Upon inspection of vaginal vault, no lacerations noted. No repair done. Sponge and needle count correct. Vaginal sweep negative. Baby to patient for clen-md-ttot and initiation. Rekha Atwood APRN-CNMadhavi Presentation: Vertex, LOP Placental Delivery Description: Spontaneous Placenta Disposition: [facility] Cord Vessel Description: 3 Vessels Cord Entanglement: Around neck x 1, loose Estimated Blood Loss: 250 A gender: Female (1 minute): 7 (5 minute): 9 Episiotomy Description: None Laceration: None Medications given after delivery: IV Pitocin Complications: None
[2019-02-28] MEDS: Oxytocin 30 units/NS 500 ml 30 UNITS/500 ML IV.SOLN 167 UNITS IV (09:49)
[2019-02-28] MEDS: 0.9% Saline Lock 10 ML Syringe IV (10:57)
[2019-02-28] MEDS: Ibuprofen 600 MG Tablet PO (11:10)
--- NOTE | 2019-02-28 11:40 | NURSING ---
Dr. Schilling at bedside to assess . Assessment findings discussed with patient. questions answered and reassurance provided
--- NOTE | 2019-02-28 12:30 | NURSING ---
blood drawn via peripheral stick to send to [facility] with
[2019-02-28 15:40] VITALS: BP 133/68; PULSE 86; RESP 16; TEMP 36.4
--- NOTE | 2019-02-28 15:53 | DCINST_ITS ---
Discharge Diet: No Restrictions Discharge Activity: Return to Normal Activity, May not drive while taking narcotic pain medications., May Shower May resume sexual activity in: 4-6 weeks Additional Activity Instructions:: Nothing in the vagina for 4-6 weeks. You may return to work/school in 6 weeks. Call your doctor if your incision/area has: Continuous Slow Oozing, Sudden Increased Bleeding, Increased Pain/ Swelling, Increased Redness, Foul Smelling Discharge Call your doctor if you observe: Fever of 101 or Higher, Inability to urinate, Inability to have a bowel movement, Using more than one pad per hour Additional Instructions: If you experience any of the following, contact your healthcare provider. * Bleeding that soaks a pad every hour for 2 hours * Fever 100.4 or higher * Unrelieved incision or abdominal pain * Swelling, redness, discharge or bleeding from your incision or episiotomy site * Your incision begins to separate * Problems urinating (including inability to urinate or burning while urinating). * Visual changes * Severe headache * Flu-like symptoms * Pain or redness in one of both of your breasts * Pain, warmth, tenderness or swelling in your legs, especially the calf area * Frequent nausea and vomiting * Symptoms of depression or anxiety If you experience any of the following, call 911 or go to the nearest Emergency Room. * Chest pain * Problems breathing * Seizure activity * Partial or complete paralysis of a body part, slurred speech, weakness or drooping of the face, or a sudden inability to walk or hold your balance Allergies/Adverse Reactions: Allergies No Known Allergies Allergy (Verified 02/28/19 08:24) Medications to take at Discharge Pnv No.95/Ferrous Fum/Folic AC [ Caplet] 1 ea PO DAILY 09/11/18 Acetaminophen [Tylenol] 1,000 mg PO Q8H PRN PRN tablet 02/28/19 Ibuprofen [Motrin] 600 mg PO Q6H PRN PRN #40 tab 02/28/19 The following prescriptions were given: Ibuprofen [Motrin] 600 mg PO Q6H PRN PRN #40 tab PRN Reason: Mild Pain (-11/02) Transmission Status: Pending to [facility] #30 Please Follow Up With: Dr. Gandara or Dr. Roque - Patient desires PPTL When: Call to make an appointment with your doctor in 6 weeks. If you had elevated Blood Pressure or 4th degree laceration you will need to be seen in 2 weeks. Primary Care Physician: Nichole Morse NP-C [Primary Care Provider] - Test Results: Test results from this visit will be discussed in further detail at your follow- up appointment, if applicable. Proposed Discharge Date: 02/28/19
--- NOTE | 2019-02-28 15:55 | PN.OBGYN_ITS ---
Subjective: Patient recently out of shower, baby got transferred to [facility] for Evaluation. Patient desires an early discharge so she can be with baby at [facility]. Patient reports no issues with ambulation or urination. Reports that her bleeding is stable and that she is not passing many blood clots at this time. Reports that cramping is well controlled - has taken Ibuprofen and feels that is working for her. sap bw consultant present and educting patient on breast pump use in case she will not be able to regularly breastfeed baby. Objective: VSS, Afebrile Nipples everted, no cracks or blisters noted Abdomen NT x 4 quadrants, FF midline 1FB below umbilicus +2/4 reflexes in LE, +1/+1 pitting edema in LE, negative calf tenderness to palpation small rubra lochia, perineum with minimal swelling - Physical Exam General: Alert, Oriented x3, Cooperative HEENT: Atraumatic, Normocephalic Neck: Supple Lungs: Normal air movement Cardiovascular: Regular rate, No murmurs Abdomen: Soft, Non Tender Extremities: No edema, Capillary Refill Less than 3 Seconds Skin: No rashes, No breakdown Musculoskeletal: No Tenderness to Palpation of Joints or Extremities Neurological: Cranial nerves II-XII grossly intact Psych/Mental Status: Normal Affect, Appropriate Weight: 219 lb 9.286 oz Body Mass Index (BMI) 32.4 Intake and Output for Last 24 Hours 02/26/19 02/27/19 02/28/19 23:59 23:59 23:59 Intake Total 1433 / 1433 Output Total 550 / 550 Balance 883 / 883 Laboratory Tests Past 24 Hrs 02/28/19 02/28/19 08:15 08:15 WBC 8.0 RBC 3.77 L Hgb 10.4 L Hct 32.8 L MCV 87.0 MCH 27.6 MCHC 31.7 L RDW 15.5 H RDW Differential 49.0 H Plt Count 164 MPV 12.0 Immature Gran % (Auto) 0.600 Neut % (Auto) 78.1 H Lymph % (Auto) 12.3 L [place] % (Auto) 8.0 Eos % (Auto) 0.9 Baso % (Auto) 0.1 Absolute Neuts (auto) 6.3 Absolute Lymphs (auto) 0.99 Total Counted Not Reportable Blood Type O POSITIVE Antibody Screen NEGATIVE Medical Necessity - Tobacco Use Smoking Status: Never smoker Assessment/Plan All Active Problems (Last Reviewed 12/01/18 @ 15:39 by Mary Beth White) ASCUS (atypical squamous cells of undetermined significance) on gynecologic Papanicolaou smear complicating , antepartum (Acute) (Acute) Supervision of high risk in second trimester (Acute) Advanced maternal age during (Resolved) 38 y/o , PPD #0, 7 hours PP, Stable 1) Early discharge to home - discharge instructions by nursing provided 2) consultation 3) Follow-up in [facility] by 6 week - patient desires PPTL Rekha MENDEZ
[2019-02-28] MEDS: Acetaminophen 500 MG Tablet 1000 MG PO (16:33)
== END 2019-02-28 16:40 | disposition home or self-care (01) | DRG 560 ==
PROVIDERS: Advanced Practice Midwife; Admitting Provider Obstetrics & Gynecology; Family Provider Nurse Practitioner; PCP Nurse Practitioner; Visit Provider Obstetrics & Gynecology
DX: O77.0 Labor and delivery complicated by meconium in amniotic fluid (principal); O69.81X0 Labor and delivery complicated by cord around neck, without compression, not applicable or unspecified; Z3A.38 38 weeks gestation of pregnancy; Z37.0 Single live birth
CPT/HCPCS: 59025; 59050; 85025; 86850; 86900; 99218; J7120; A4216; G0378

== ENCOUNTER 2019-04-23 13:27 | Day surgery (SDC) | payer MEDICAID, SELFPAY ==
--- NOTE | 2019-04-10 12:12 | HP.PCM_ITS ---
History and Physical Date of Admission: 04/23/19 38-year-old 3 para 3 female presents for permanent sterilization. She has a history of 3 previous spontaneous vaginal deliveries. She declines reversible methods of contraception and would like tubal sterilization. review of systems: Gen.: No fevers or chills Heme: No history of prolonged bleeding or easy bruising Cardiac: No chest pain or shortness of breath Respiratory: No cough or shortness of breath past medical history: Depression, neck pain, asthma, allergies, reflux, abnormal Pap smears Past surgical history: Thyroid biopsy, tonsillectomy as a child Allergies: No known drug allergies Medications: B12 injections weekly, iron supplement, albuterol inhaler as needed, Prilosec 20 mg daily, Qtupdzswg82 mg daily, Flovent inhaler 1 puff twice daily Physical exam: At patient's preoperative visit on 03/30/2019 Vitals:blood pressure: 108/58 weight: 184 pounds BMI: 27 Gen.: Awake and alert in no acute distress Lungs: Clear to all station bilaterally Heart: Regular rate and rhythm INVESTIGATOR NARCOTICS exam: Normal external genitalia, normal cervix. Normal vagina and rugae. Uterus is mobile, nontender and mobile size Abdomen: Soft, nontender no masses or hernias noted Assessment and plan 38-year-old 3 para 3 female who does not desire future childbearing. Risks benefits and alternatives to bilateral salpingectomy under discussed with the patient, questions were answered her satisfaction she desires to proceed. She understands this is permanent, irreversible risk of f ailure and regret. She declines reversible options are vasectomy. This history and physical was performed in my office on 12/25/18
[2019-04-23 13:43] VITALS: BP 128/73; PULSE 78; RESP 16; TEMP 36.5; O2SAT 100; BMI 27.3
[2019-04-23 13:50] LABS: Internal QC Validated? YES +Cl - CLEAR BKGD; Pregnancy, Urine Negative Negative
[2019-04-23] MEDS: Acetaminophen 500 MG Tablet 1000 MG PO (13:56)
[2019-04-23] MEDS: Celecoxib 200 MG Capsule PO (13:57)
[2019-04-23] MEDS: Lactated Ringers 1,000 ML 50 ML IV (13:58)
[2019-04-23 14:04] LABS: Hematocrit 38.1 % (37-47); Hemoglobin 12.3 g/dL (12.0-15.0); Mean Corp Hgb Conc 32.3 g/dL (32-36); Mean Corpuscular Hgb 28.9 pg (27.0-32.0); Mean Corpuscular Volume 89.4 fL (81-99); Mean Platelet Vol. 11.3 fl (6.2-12.0); Platelet Count 251 K/mm3 (150-450); RBC Distribution Width CV 13.9 % (11.6-14.6); RBC Distribution Width SD 45.1 fl (35.1-43.9); Red Blood Count 4.26 M/mm3 (4.2-5.4); White Blood Count 4.5 K/mm3 (4.4-11.0)
[2019-04-23 14:16] LABS: International Normalized Ratio 1.1; Partial Thromboplast Time 32.2 Seconds (24.1-36.2)
--- NOTE | 2019-04-23 14:29 | PCM.DC.TUB ---
Discharge Diet: No Restrictions - Increase fluid intake for the next 48 hours. Discharge Activity: Return to Normal Activity, May Drive - when you are no longer taking pain/narcotic meds., May Shower, May Take a Tub Bath - in 7 days May resume sexual activity in: 1 week Additional Activity Instructions:: Ambulate often the next week after surgery. Nothing in the vagina for 5 days. Call your doctor if your incision/area has: Continuous Slow Oozing, Sudden Increased Bleeding, Increased Pain/ Swelling, Increased Redness, Foul Smelling Discharge Call your doctor if you observe: Fever of 101 or Higher, Using more than one pad per hour Cleanse incision/area with: Soap & Water, - - Incisions have skin glue, it can get wet. You can pat them dry. Do not peel the skin glue off. Allergies/Adverse Reactions: Allergies No Known Allergies Allergy (Verified 04/23/19 13:38) Medications to take at Discharge Albuterol IH (ProAir) [Proair Hfa] 1 - 2 puff INHALATION Q6H PRN PRN 04/16/19 Cyanocobalamin [Vitamin B12] 100 mcg IM Q30D 04/16/19 Doxycycline 100 mg PO BID 04/16/19 Fluticasone Prop 100 mcg [Flovent Diskus 100 Mcg] 1 puff INHALATION PRN PRN 04/16/19 Montelukast [Singulair] 10 mg PO DAILY 04/16/19 Mupirocin Calcium [Bactroban Cream] 1 applic TOPICAL BID 04/16/19 Omeprazole 20 mg PO DAILY 04/16/19 Hydrocodone/Acetaminophen [[place] 5-325 Tablet] 1 each PO Q6H PRN PRN #10 tablet 04/23/19 Ibuprofen [Motrin] 600 mg PO Q6H PRN #60 tab 04/23/19 The following prescriptions were given: Ibuprofen [Motrin] 600 mg PO Q6H PRN #60 tab PRN Reason: Pain Transmission Status: Pending to [facility] #30 Hydrocodone/Acetaminophen [[place] 5-325 Tablet] 1 each PO Q6H PRN PRN #10 tablet PRN Reason: Severe Pain (6-10/10) Transmission Status: Sent to [facility] #30 Orders to be completed after discharge: Type & Screen Time Frame: 04/23/19, Facility: [facility], Location: Laboratory Primary Care Physician: Gianna Arredondo MD [Primary Care Provider] - Test Results: Test results from this visit will be discussed in further detail at your follow-up appointment, if applicable. Please Follow Up With: Vaishali Gandara MD - [phone] When: 2-4 weeks or as needed in my office
--- NOTE | 2019-04-23 14:40 | FALS_PTH ---
PATIENT: ADDISON PEREZ LOC: [facility] U#:[id number] AGE/SX: 38/F ROOM: RE04/23/[address]: Dr. Vaishali Gandara MD : 1980 BED: DIS: 04/23/2019 SPEC #: [id number] RECD: 04/23/19 16:37 STATUS: KAYY RERaj #: [id number] MICHELLE: 04/23/19 14:[address]: Vaishali Gandara DEPT: SURGICAL PATHOLOGY RECD BY: Murali Brownlee ENTERED: 04/24/19 10:02 SP TYPE: FALL TUBES OTHR DR: MD Gianna Hernández MD Tissues: Fallopian tube Procedures: Surgery Specimen Level II HEADER OPERATION: Laparoscopic salpingectomy PRE-OP DIAGNOSIS: Desires permanent sterilization TISSUE SUBMITTED: Bilateral fallopian tubes MICROSCOPIC DIAGNOSIS Right and left fallopian tubes, bilateral salpingectomies: Two complete cross-sections of fallopian tubes with no pathologic change. AM:chau 04/28/19 MICROSCOPIC DESCRIPTION Slides are reviewed. GROSS DESCRIPTION Received is one container labeled with the patient's name and designated bilateral fallopian tubes. The specimen consists of bilateral fallopian tubes including fimbrial ends measuring 5.5 cm in length and 0.5 cm in diameter and 5 cm in length and 0.5 cm in diameter. Sections do not reveal any mass lesion. The fallopian tubes are not identified as right or left. Sections reveal unremarkable cut surfaces. Hand Stamper sections are submitted in two cassettes with each cassette containing one fallopian tube. / RUI:chau 04/24/19 TC:4 CPT: 49702 x2
[2019-04-23] MEDS: Bupivacaine Mpf 0.5% 30 ML VIAL (14:50)
--- NOTE | 2019-04-23 15:11 | PCM.OPRPT ---
Report of Operation Date of Procedure: 04/23/19 Pre-Operative Diagnosis: sterilization request Post-Operative Diagnosis: same Surgery/Procedure Performed:: Laparoscopic bilateral salpingectomy Description of Surgical Findings:: Normal-appearing uterus, tubes and ovaries. Normal-appearing cervix and vagina food sanitarian: Meggan Flores Type of Anesthesia:: General Special Medications: none Specimen's removed: bilateral fallopian tubes Drains: none Estimated Blood Loss (mL): 10 Fluids Replaced: 700 cc LR Description of Procedure: The patient was taken to the operating room where she was prepped and draped in the dorsolithotomy position. A weighted speculum was placed in the vagina and the anterior lip of the cervix was grasped with a tenaculum. The [place] uterine manipulator was placed and the remainder of the instruments were removed from the vagina. Attention was turned to the abdomen. All port sites were infiltrated with 0.5% Marcaine before skin incisions were made. A 5 mm intraumbilical incision was made. The anterior abdominal wall was tented up with 2 towel clamps while a 5 mm blade less trocar and sleeve were directly inserted. Intraperitoneal placement was confirmed with the laparoscope. The pneumoperitoneum was created and the underlying abdominal contents were intact. The patient was placed in Trendelenburg. Right and left lower quadrant ports were placed under direct visualization lateral to the inferior epigastric vessels. The bowel was swept away and the above findings were noted. The LigaSure device was used to clamp seal and transect the antimesenteric portions of the right tube to the cornual insertion of the uterus. The tube was amputated from the uterus and the pedicles were all confirmed to be hemostatic. The same procedure was performed on the contralateral side. The specimens were brought out through a 5 mm port. The pedicles were again examined and found to be hemostatic. The lateral ports were removed under direct visualization and no active bleeding was noted. The pneumoperitoneum was released. The skin incisions were closed with Monocryl suture in a subcuticular fashion and skin glue. The vaginal instruments were removed and the vaginal sweep was completed by me. The procedure was performed by me with assistance. All sponge and needle counts were correct and the patient was taken to the recovery room in stable condition. Grafts/Implants Used: None - Complications None - Admit VTE Documentation VTE Present on Admission: No VTE Mechan Device Prophylaxis: SCD's VTE Pharm Prophylaxis ordered?: No Reason prophylaxis not ordered:: Procedure Not Indicated
[2019-04-23 15:17] VITALS: BP 128/73; BP 136/86; PULSE 59; RESP 16; TEMP 36.1; O2SAT 98
[2019-04-23 15:30] VITALS: BP 128/73; BP 129/69; PULSE 59; RESP 16; O2SAT 100
[2019-04-23 15:45] VITALS: BP 128/73; BP 132/78; PULSE 50; RESP 18; O2SAT 100
[2019-04-23 15:55] VITALS: BP 125/63; BP 128/73; PULSE 53; RESP 16; TEMP 36.1; O2SAT 100
[2019-04-23 16:25] VITALS: BP 114/70; BP 128/73; PULSE 56; RESP 16; TEMP 36.2; O2SAT 99
== END 2019-04-23 16:30 | disposition home or self-care (01) ==
LOC: SDC 13:28 → AC 13:29
PROVIDERS: Anesthesiology; Family Provider Internal Medicine; PCP Internal Medicine; Referring Provider Obstetrics & Gynecology; Visit Provider Obstetrics & Gynecology
PROC: (CPT 58661; principal; 2019-04-23 14:25)
DX: Z30.2 Encounter for sterilization (principal); D64.9 Anemia, unspecified; J45.909 Unspecified asthma, uncomplicated; K21.9 Gastro-esophageal reflux disease without esophagitis; Z79.899 Other long term (current) drug therapy
CPT/HCPCS: 58661; 81025; 85027; 85610; 85730; 86850; 86900; 86901; 88302; J7120; J2405

== ENCOUNTER 2019-11-03 04:40 | Emergency (ER) | payer MEDICAID, SELFPAY ==
[2019-11-03 04:43] VITALS: BP 119/76; PULSE 75; RESP 16; TEMP 36.4; O2SAT 98; BMI 25.0
--- NOTE | 2019-11-03 05:05 | ED.VIS.UPPEX ---
History of Present Illness Chief Complaint: Upper Extremity Injury Narrative: Patient presenting secondary to pain in her right small finger. Patient reports that she noted the pain to have started this evening. There is redness and swelling and throbbing in the area. Pain is worse on palpation. No numbness or weakness. No constitutional symptoms. Patient denies any history of diabetes or immunosuppression. Patient states that she does bite her fingernails, she is never had any prior similar symptoms in the past. Past Medical History - Allergies and Home Meds Allergies/Adverse Reactions: Allergies No Known Allergies Allergy (Verified 11/03/19 04:41) Primary Care Physician: Gianna Arredondo MD [Primary Care Provider] - Past Medical History: - - Asthma Surgical History: no surgical history Lives: With Family Smoking Status: Never smoker Alcohol: None Drugs: None Review of Systems General: Denies: Fever Respiratory: Denies: Dyspnea Gastrointestinal: Denies: Vomiting Musculoskeletal: Reports: Extremity Pain. Denies: Myalgias Skin: Reports: Rash Hematologic: Denies: Easy bruising, Easy bleeding Physical Exam Vital Signs/Narrative: Vital Signs Temp Pulse Resp BP Pulse Ox 11/03/19 04:43 97.6 F L 75 16 119/76 98 Inital Vital Signs reviewed: Yes Right Finger: - - Examination of the patient's right hand shows evidence of erythema just proximal to the patient's small digit nail with very slight bogginess of the ulnar portion there would seem to indicate some fluctuance. Pad of the finger is soft. No evidence of lymphangitic streaking. Normal range of motion of the finger. General: Well nourished, Well developed Head: Normocephalic, Atraumatic Eyes: EOMI ENT: Moist Mucous Membranes Neck: Full ROM Cardiovascular: Regular rate, Regular rhythm, - - 2+ radial pulses Respiratory: No distress Skin: Normal color Neurological: Alert, Oriented x3 Psychological: Normal affect Diagnostic/Tx/Re-eval - Medical Decision Making Patient presented with a physical exam that was consistent with a paronychia. This was drained as noted in the procedure note. Patient was recommended on soaking it in antibacterial soapy water 3 times a day and massaging it, and otherwise keeping it covered with antibiotic ointment and a Band-Aid. Patient was educated on signs and symptoms for which to return which she voiced understanding. Patient was discharged in stable condition. Procedures Procedure(s): Paronychia drainage: Patient's finger was prepped with a alcohol pad. A 22-gauge needle was utilized, and the area between the patient's cuticle and nail was dissected with the needle gently and purulent material was expressed. Patient tolerated this well. Wound was dressed with bacitracin and a Band-Aid. ED Disposition - Plan for ED Patient: Disposition: Home or Assisted Living Diagnosis: Paronychia of right little finger Instructions: Paronychia Referrals: Gianna Arredondo MD [Primary Care Provider] - 3-5 Days if not improving
[2019-11-03 05:06] VITALS: BP 119/76; PULSE 75; RESP 16; O2SAT 98
[2019-11-03] MEDS: BACITRACIN 15 GM Tube 1 APPLIC TOPICAL (05:26)
== END 2019-11-03 05:26 | disposition home or self-care (01) ==
PROVIDERS: Emergency Provider Emergency Medicine; PCP Internal Medicine
DX: L03.011 Cellulitis of right finger (principal); J45.909 Unspecified asthma, uncomplicated; Z79.899 Other long term (current) drug therapy
CPT/HCPCS: 10060; 99282

== ENCOUNTER 2019-11-04 22:15 | Emergency (ER) | payer MEDICAID, SELFPAY ==
[2019-11-03 04:43] VITALS: BMI 25.0
[2019-11-04 22:16] VITALS: BP 115/77; PULSE 88; RESP 17; TEMP 37.1; O2SAT 97; BMI 25.2
--- NOTE | 2019-11-04 22:42 | ED.DCSUM_ITS ---
- ER Visit Summary Date of Service: 11/04/19 Chief Complaint: Left ear felt red and hot History of Present Illness: The patient is a 39 F patient states her left ear felt red and hot. She has other symptoms including nasal congestion, her left face felt numb. She had cold symptoms that started this morning. She denies a fever. Most of their symptoms are now resolved. She feels a little bit achy. She did not get a flu shot this year. Physical Examination: Vital signs reviewed. HEENT exam unremarkable. Heart is regular rate and rhythm without murmurs. Lungs are clear to auscultation. Abdomen is soft and nontender. Extremities reveal no edema. Skin exam normal. Neurologic exam normal. Test Results: None performed Emergency Department Course and Treatment: The patients exam is totally normal. I do not see any abnormalities. She may have a virus that starting. I will give her Mucinex D Treatment Plan: [] Disposition: Discharge Impression: URI This note was generated with HeartFlow dictation software. It may contain incorrect words, spelling, and punctuation that were not noted in review of the chart prior to signing ED Disposition - Plan for ED Patient: Disposition: Home or Assisted Living Instructions: URI, Viral, No Abx (Adult) Prescriptions: Guaifenesin/Pseudoephedrne HCl [Mucinex D ER 600-60 mg Tablet] 1 ea PO BID #14 tab.er.12h Transmission Status: Pending to [facility] [place] Referrals: Gianna Arredondo MD [Primary Care Provider] -
== END 2019-11-04 23:01 | disposition home or self-care (01) ==
LOC: ED 22:56
PROVIDERS: Emergency Provider Emergency Medicine; PCP Internal Medicine
DX: J06.9 Acute upper respiratory infection, unspecified (principal); J45.909 Unspecified asthma, uncomplicated; Z79.899 Other long term (current) drug therapy
CPT/HCPCS: 99282

== ENCOUNTER 2020-04-24 10:43 | Emergency (ER) | payer MEDICAID, SELFPAY ==
[2020-04-24 10:45] VITALS: BP 131/91; PULSE 76; RESP 17; TEMP 36.3; O2SAT 100; BMI 24.2
--- NOTE | 2020-04-24 11:10 | CT_ITS ---
STUDY: CT BRAIN WITHOUT CONTRAST REASON FOR EXAM: Female, 39 years old. SCHWARTZ, NECK PAIN, NAUSEA, FATIGUE RADIATION DOSAGE (If Supplied By Facility): CTDIvol = ( 44.99 ) mGy, DLP = ( 762.36 ) mGycm TECHNIQUE: Transaxial CT imaging of the brain was performed without administration of intravenous contrast material. Individualized dose optimization techniques were used for this CT. COMPARISON: No relevant priors. FINDINGS: Normal soft tissue structures. Normal calvarium. Normal size ventricles and extra-axial spaces for the patient''s age. Normal white matter tracts of the cerebral hemispheres. Normal basal ganglia and thalami. Normal brainstem. Normal cerebellum. There is no intracranial hemorrhage. There are no findings of an acute ischemic infarction. Normal visualized paranasal sinuses. CT/Brain/Head without Contrast IMPRESSION: Normal unenhanced CT scan of the brain. Electronically Signed: Gilson Blackmon MD at 12:15 EDT Tel , Service support ,
--- NOTE | 2020-04-24 11:11 | ED.VIS.GEN ---
History of Present Illness Chief Complaint: Headache Informant: Patient Narrative: 39-year-old female presents with concern for headache. States that she woke up 5 hours ago with this headache. States that she has had intermittent headaches over the past few weeks. Does have a history of headaches without diagnosed migraines. Describes it is primarily left-sided and aching. Admits to nausea without vomiting. Does admit to phonophobia and photophobia. Denies any trauma. Denies any fever or chills. States that she was seen by her primary care physician for this issue placed her in physical therapy. No recent imaging. Past Medical History - Allergies and Home Meds Allergies/Adverse Reactions: Allergies No Known Allergies Allergy (Verified 11/04/19 22:16) Primary Care Physician: Gianna Arredondo MD [Primary Care Provider] - Past Medical History: None Surgical History: no surgical history Lives: With Family Smoking Status: Never smoker Alcohol: None Drugs: None Review of Systems General: Denies: Chills, Fever, Sweats Eyes: Denies: Visual changes - bilaterally, Diplopia ENT: Denies: Rhinorrhea, Sore throat Cardiovascular: Denies: Chest pain, Palpitations Respiratory: Denies: Dyspnea, Cough, Dyspnea on exertion Gastrointestinal: Denies: Abdominal pain, Nausea, Vomiting, Diarrhea, Melena, Hematochezia Genitourinary: Denies: Dysuria, Hematuria, Frequency Musculoskeletal: Denies: Back pain, Extremity Pain Skin: Denies: Rash, Wounds Neurological: Reports: Headache. Denies: Weakness, Numbness Physical Exam Vital Signs/Narrative: Vital Signs Temp Pulse Resp BP Pulse Ox 04/24/20 10:45 97.3 F L 76 17 131/91 H 100 Inital Vital Signs reviewed: Yes General: Well nourished, Well developed, No Acute Distress Head: Normocephalic, Atraumatic Eyes: Perrl, EOMI ENT: Moist mucous membranes, No rhinorrhea Neck: Supple, Nontender Cardiovascular: Regular rate, Regular rhythm, No murmurs Respiratory: No distress, CTA bilaterally, Chest nontender Abdomen: Soft, Nontender, Nondistended, Normal bowel sounds Back: Nontender, Normal Inspection Extremities: Nontender, No edema Skin: Normal color, No rash Neurological: Alert, Oriented x3, Cranial nerves II-XII grossly intact, Normal Strength, Normal Sensation Psychological: Normal affect, Normal Mood Diagnostic/Tx/Re-eval Clinical Impression(s) from Imaging Studies Brain CT 04/24/20 11:10 IMPRESSION: Normal unenhanced CT scan of the brain. Electronically Signed: Gilson Blackmon MD at 12:15 EDT Tel , Service support , - Medical Decision Making Appears well nontoxic. No focal neurologic deficit. Afebrile. Meningismus. CT brain negative. Patient was given 1 L normal saline, Reglan, Benadryl, Toradol. Headache improved. Advised on rest at home with Tylenol. Asked to return for new or worsening symptoms. Asked to follow-up with primary care provider. Discharged home in stable condition. Pression: 1. Headache 2. Nausea ED Disposition - Plan for ED Patient: Disposition: Home or Assisted Living Instructions: ED Headache Unspecified Referrals: Gianna Arredondo MD [Primary Care Provider] -
[2020-04-24] MEDS: DiphenhydrAMINE 50 MG/ML Syringe 25 MG IV (11:18)
[2020-04-24] MEDS: Metoclopramide 10 MG/2 ML Vial 5 MG IV (11:18)
[2020-04-24] MEDS: 0.9% Normal Saline 1,000 ML 999 ML IV (11:19)
[2020-04-24] MEDS: Ketorolac 15 MG/ML Vial IV (12:45)
[2020-04-24 13:49] VITALS: BP 115/80; PULSE 74; RESP 18
== END 2020-04-24 13:50 | disposition home or self-care (01) ==
PROVIDERS: Emergency Provider Emergency Medicine; PCP Internal Medicine
DX: R51 Headache (principal); R11.0 Nausea
CPT/HCPCS: 70450; 96361; 96374; 96375; 99284; J7030; A4216

== ENCOUNTER 2023-02-13 10:54 | Emergency (ER) | payer MEDICAID, SELFPAY ==
[2023-02-13 10:55] VITALS: BP 119/58; PULSE 72; RESP 16; TEMP 36.3; O2SAT 100; BMI 23.6
--- NOTE | 2023-02-13 11:08 | EX.ED.DYSGE1 ---
HPI History of Present Illness Chief Complaint: Abd Pain [facility] Medical History (Updated 02/13/23 @ 13:[address] Rei South, DO) Allergic rhinitis Cervical radiculopathy GERD (gastroesophageal reflux disease) Ovarian cyst depression Home Medications albuterol sulfate 90 mcg/actuation aerosol inhaler 1 - 2 puff inhalation Q6H PRN PRN Sob &/Or Wheezing 04/16/19 [History Last Taken Unknown] fluticasone propionate 100 mcg/actuation blister powder for inhalation 1 puff inhalation PRN PRN Sob &/Or Wheezing 04/16/19 [History Last Taken Unknown] omeprazole 20 mg capsule,delayed release 20 mg PO DAILY 04/16/19 [History Last Taken 04/23/19 11:00] ferrous gluconate 270 mg (27 mg iron) tablet 270 mg PO BID 04/24/20 [History Last Taken Unknown] escitalopram oxalate 10 mg tablet 10 mg PO DAILY 02/13/23 [History Last Taken Unknown] Allergy/AdvReac Type Severity Reaction Status Date / Time No Known Allergies Allergy Verified 02/13/23 10:56 Family History Grandmother Hypertension Myocardial infarction Sister bipolar Mother CVA (cerebral vascular accident) Surgical History History of tonsillectomy and adenoidectomy thyroid left fine needle [place] teeth extracted Social History (Updated 12/01/18 @ 16:20 by Blaire Cesar [employer], [employer]) number of children: 2 current occupational status: employed current occupation: [employer] Smoking Status: Never smoker alcohol intake: never substance use type: does not use seatbelt use: always do you feel safe at home: Yes additional social history: FOB Hamzah Benavidez in [place] EXAM Physical Exam Const Vital Signs: 02/13/23 10:55 02/13/23 13:00 02/13/23 14:03 Temperature 97.3 F L Temperature Source Temporal Pulse Rate 72 Respiratory Rate 16 16 16 Blood Pressure 119/58 L Blood Pressure Mean 78 Pulse Ox 100 Oxygen Delivery Method Room Air MDM MDM MDM Narrative Medical decision making narrative: HISTORY OF PRESENT ILLNESS: 42-year-old female here for abdominal pain. Patient states she has lower abdominal pain and nausea started 20 minutes ago at work. Notes she vomited once. States pain would not let up. She further states she had acute onset lower abdominal pain. No particular laterality. Notes 1 episode of nonbloody nonbilious vomitus. Denies any fever. States her symptoms have been ongoing for longer than just the past 20 minutes. She states she followed up with her [employer] and got an outpatient ultrasound which was negative for ovarian pathology. She denies any urinary complaints. Last bowel movement was yesterday. No hematochezia melena. Denies vaginal bleeding or discharge. She is sexually active. Last period was on January 30. REVIEW OF SYSTEMS: Pertinent positives: Abdominal pain, vomiting Pertinent negatives: Diarrhea, constipation PHYSICAL EXAM: Nursing triage notes reviewed, Vital signs reviewed Constitutional: please see mdm HENT: MMM Eyes: Pupils equal round and reactive to light, Extraocular muscles intact Neck: No stridor, no JVD, full neck ROM Lungs: Clear to auscultation, No wheezing or rales. No increased work of breathing, no conversational dyspnea, no accessory muscle use, no nasal flaring. No respiratory distress noted Heart: Regular rate and rhythm, No murmurs, No rubs and No gallops, 2+ distal pulses (radial, femoral, posterior tibial) in all extremities Abdomen: Soft, mild lower abdominal tenderness but no rigidity, rebound or guarding, no obvious peritoneal signs, no palpable pulsatile abdominal masses, no auscultated abdominal bruit. There is no right lower quadrant tenderness. There is slight suprapubic tenderness : No CVAT Extremities: No edema Neuro: No focal neurological deficits, cranial nerves II through XII intact, 5/5 strength in all extremities. Intact sensation to light touch in all extremities, 2+ reflexes bilateral patella tendons. Normal gait. No ataxia. Skin: No rash or lesions noted MEDICAL DECISION MAKING: Chief Complaint: Abdominal pain External records reviewed: OB ultrasound x19 shows intrauterine Factors affecting care: GERD Social determinants of health: None History obtained from others: None Consults: none ALL IMAGES (IF OBTAINED) HAVE BEEN PERSONALLY REVIEWED AND INTERPRETED BY MYSELF. [facility] Narrative: Patient was hemodynamically stable, afebrile, nontoxic-appearing. Abdominal exam with slight lower abdominal tenderness. I considered the following differential diagnosis: Perforation, obstruction, appendicitis, cystitis, pyelonephritis, nephrolithiasis, ectopic , less likely ovarian torsion or ovarian pathology given recent negative pelvic ultrasound I obtained a CT scan given the acuity of the patient's pain. Also obtain labs to rule out signs of systemic inflammation, electrode abnormalities, pancreatitis, pad of bili obstruction, UTI or . Labs grossly unremarkable. During the patient's course after pain medicine she did pass a kidney stone. She notes resolution of symptoms. This likely etiology. Urine was not infected. No need for antibiotics. Give strict return precautions and follow-up instructions. The patient and/or family, caregivers express understanding. The patient and/or family, caregivers agrees with the plan. Total critical care time today provided was at least 0 minutes. This excludes separately billable procedures. Critical care time (if documented) is secondary to the patient having high probability of clinically significant/life threatening deterioration in the patient's condition which required my urgent intervention. Shared decision making: I will have a discussion with the patient and or visitors regarding risk/benefits of further testing or admission. They will be made aware of of the risk/benefits inherent in this decision they will be given the opportunity to voice understanding. Lab Data Attestation: I reviewed the patient's lab results. Lab results narrative: CBC without leukocytosis, severe anemia, no thrombocytopenia. BMP without significant [place] normalities, no significant anion gap to suggest endorgan hypoperfusion LFTs show no evidence of hepatobiliary pathology. Lipase is wnl indicating no pancreatic inflammation. Urine test is negative Urinalysis shows no evidence of urinary inflammation suggestive of UTI Labs: Laboratory Results - last 24 hr 02/13/23 02/13/23 02/13/23 11:35 11:35 12:00 WBC 6.5 RBC 3.98 L Hgb 12.1 Hct 38.1 MCV 95.7 MCH 30.4 MCHC 31.8 L RDW Std Deviation 42.7 RDW Coeff of Ricky 12.2 Plt Count 243 MPV 11.2 Immature Gran % (Auto) 0.800 Neut % (Auto) 76.6 H Lymph % (Auto) 15.3 L Holt % (Auto) 5.8 Eos % (Auto) 1.2 Baso % (Auto) 0.3 Absolute Neuts (auto) 5.0 Absolute Lymphs (auto) 1.00 Nucleated RBC % 0 Sodium 138 Potassium 4.1 Chloride 109 H Carbon Dioxide 24.0 Anion Gap 5 BUN 14 Creatinine 0.76 Estim Creat Clear Calc 98.27 Est GFR (MDRD) Af Amer 107 Est GFR (MDRD) Non-Af 89 BUN/Creatinine Ratio 18.4 Glucose 95 Calcium 8.2 L Total Bilirubin 0.40 AST 16 ALT 20 Alkaline Phosphatase 32 L Total Protein 6.3 L Albumin 3.2 Globulin 3.1 Albumin/Globulin Ratio 1.0 Lipase 33 Urine Color Yellow Urine Clarity Sl. Cloudy Urine pH 5.0 Ur Specific [place] 1.020 Urine Protein Negative Urine Glucose (UA) Normal Urine Ketones 5 H Urine Occult Blood 50 H Urine Nitrite Negative Urine Bilirubin Negative Urine Urobilinogen Normal Ur Leukocyte Esterase 25 H Urine RBC 0-5 SEEN Urine WBC 0-5 SEEN Ur Squamous Epith Cells 0-5 SEEN Urine Bacteria 0 SEEN Urine Mucus 0 SEEN Urine Test Negative Radiography Diagnostic Testing: Clinical Impression(s) from Imaging Studies Abdomen/Pelvis CT 02/13/23 11:30 IMPRESSION: 1. Unremarkable enhanced CT of the abdomen and pelvis. Electronically Signed: Jourdan Whitaker MD at 13:28 EDT Reading Location ID and State: [facility] / [place] , Service support , Discharge Plan Triage Chief Complaint: Abd Pain ED Provider: Rei South Dx/Rx/DC Orders Clinical Impression: Nephrolithiasis Instructions: ED Kidney Stone, Passed Prescriptions: No Action fluticasone propionate 1 PUFF inhaler 1 puff inhalation PRN PRN (Reason: Sob &/Or Wheezing) omeprazole 20 MG capsule,delayed release(DR/EC) 20 mg PO DAILY albuterol sulfate 1 PUFF inhaler 1 - 2 puff inhalation Q6H PRN PRN (Reason: Sob &/Or Wheezing) ferrous gluconate 270 MG tablet 270 mg PO BID escitalopram oxalate 10 mg tablet 10 mg PO DAILY Label Comments: TAKE 1 TABLET BY MOUTH EVERY DAY Stand Alone Forms: ED Work / School Excuse Primary Care Provider: Gianna Arredondo Referrals: Gianna Arredondo MD [Primary Care Provider] - Activity Restrictions/Additional Instructions: Thank you for trusting us with your care today! Please take Tylenol (2 pills, 650 mg), ibuprofen (2 pills, 400 mg) every 6 hours as needed for pain and fever control. Please return to the emergency department if your symptoms change or worsen. Please follow with your primary care physician for further outpatient evaluation and management. Disposition Disposition: Home, Self Care Discharge Date/Time: 02/13/23 14:04
--- NOTE | 2023-02-13 11:30 | CT_ITS ---
STUDY: CT ABDOMEN AND PELVIS WITH CONTRAST REASON FOR EXAM: Female, 42 years old. pt states low abd pain and nausea starting 20 minutes ago at work and when vomited pain let up RADIATION DOSAGE (If Supplied By Facility): CTDIvol = ( 10.49 ) mGy, DLP = ( 438.12 ) mGycm TECHNIQUE: Transaxial images were obtained from the dome of the diaphragm to the symphysis pubis with oral contrast. ml of 100mL Isovue-300 contrast was administered. Sagittal and coronal images were reconstructed. Individualized dose optimization techniques were used for this CT. COMPARISON: None. FINDINGS: A small calcified granuloma is present in the posterior aspect of the right lower lobe. The visualized portions of the heart are within normal limits. Normal liver. Normal gallbladder and extrahepatic biliary system. Normal spleen. Normal pancreas. Normal bilateral adrenal glands. Normal right kidney. Normal left kidney. No hydronephrosis is present. Normal visualized stomach. Normal small intestine. Normal colon. The appendix is visualized and appears normal. There is no demonstrated bowel dilatation or surrounding inflammatory stranding. No demonstrated bowel obstruction or intra-abdominal free air or free fluid. Normal abdominal aorta. Normal inferior vena cava. Normal retroperitoneum. Normal urinary bladder. Unremarkable uterus and adnexa. Normal abdominal wall. Normal osseous structures. CT/Abdomen/Pelvis WITH Contrast IMPRESSION: 1. Unremarkable enhanced CT of the abdomen and pelvis. Electronically Signed: Jourdan Whitaker MD at 13:28 EDT ,
[2023-02-13 11:48] LABS: Basophil# 0.02 X10^3/uL; Basophil% 0.3 % (0-1); Eosinophil# 0.08 X10^3/uL; Eosinophils% 1.2 % (0-5); Hematocrit 38.1 % (37-47); Hemoglobin 12.1 g/dL (12.0-15.0); Lymphocyte % 15.3 % (19-41); Mean Corp Hgb Conc 31.8 g/dL (32-36); Mean Corpuscular Hgb 30.4 pg (27.0-32.0); Mean Corpuscular Volume 95.7 fL (81-99); Mean Platelet Vol. 11.2 fl (6.2-12.0); Monocyte# 0.38 X10^3/uL; Monocyte% 5.8 % (0-10); NRBC Flagged by Analyzer 0 % (0-5); Neutrophil # 5.01 X10^3/uL (2.7-7.7); Neutrophil % 76.6 % (47-70); Platelet Count 243 K/mm3 (150-450); RBC Distribution Width CV 12.2 % (11.6-14.6); RBC Distribution Width SD 42.7 fl (35.1-43.9); Red Blood Count 3.98 M/mm3 (4.2-5.4); White Blood Count 6.5 K/mm3 (4.4-11.0)
[2023-02-13] MEDS: 0.9% Normal Saline 1,000 ML 1000 ML IV (11:58)
[2023-02-13] MEDS: Morphine 4 MG/ML Syringe IV (11:58)
[2023-02-13] MEDS: Ondansetron 4 MG/2 ML Vial IV (11:58)
[2023-02-13 12:02] LABS: Bacteria 0 SEEN /hpf (None Seen); Mucous, Urine 0 SEEN /hpf (<or=2+)
[2023-02-13 12:05] LABS: AST(SGOT) 16 U/L (15-37); Alanine Aminotransfer ALT/SGPT 20 U/L (13-56); Albumin, Serum 3.2 g/dL (3.2-5.0); Alkaline Phosphatase 32 U/L (45-117); Anion Gap 5 (5-15); BUN 14 mg/dL (7-18); BUN/Creat Ratio 18.4 RATIO (10-20); Calcium,Total 8.2 mg/dL (8.5-10.1); Chloride 109 mmol/L (98-107); Creatinine, Serum 0.76 mg/dL (0.55-1.02); EST Glomerular Filtration Rate 89 mL/min (>60); Est Glom Filt Rate - Afr Amer 107 mL/min (>60); Estimated Creatinine Clearance 98.27 ml/min; Globulin 3.1 g/dL (2.2-4.2); Glucose 95 mg/dL (74-106); Lipase 33 U/L (13-75); Potassium 4.1 mmol/L (3.5-5.1); Protein, Total 6.3 g/dL (6.4-8.2); Sodium Level 138 mmol/L (136-145)
[2023-02-13 12:06] LABS: Color, Urine Yellow (Yellow); Glucose, Dipstick Normal (Normal); Ketone-Dipstick 5 mg/dl (Negative); Leukocyte Esterase-Dipstick 25 /ul (Negative); Nitrite-Dipstick Negative (Negative); Occult Blood-Urine 50 /ul (Negative); Protein-Dipstick Negative (Negative); Urine Bilirubin Dipstick Negative (Negative); Urine Clarity Sl. Cloudy (Clear); Urine Urobilinogen Normal (Normal)
[2023-02-13 12:11] LABS: Internal QC Validated? YES +Cl - CLEAR BKGD; Pregnancy, Urine Negative Negative
[2023-02-13 12:15] LABS: Red Blood Cells-Urine 0-5 SEEN /hpf (0-5); Squamous Epithelial Cells - UA 0-5 SEEN /hpf (5-10); White Blood Cells 0-5 SEEN /hpf (0-5)
[2023-02-13 13:00] VITALS: RESP 16
[2023-02-13 14:03] VITALS: RESP 16
== END 2023-02-13 14:04 | disposition home or self-care (01) ==
PROVIDERS: Emergency Provider Emergency Medicine; PCP Internal Medicine; Visit Provider Emergency Medicine
DX: N20.0 Calculus of kidney (principal); K21.9 Gastro-esophageal reflux disease without esophagitis
CPT/HCPCS: 74177; 80053; 81001; 81025; 83690; 85025; 96361; 96374; 96375; 99282; J7030; Q9967; A4216; J2405

== ENCOUNTER 2023-05-18 03:19 | Emergency (ER) | payer MEDICAID, SELFPAY ==
[2023-05-18 03:19] VITALS: BP 142/79; PULSE 112; RESP 12; TEMP 36.9; O2SAT 96; BMI 23.6
--- NOTE | 2023-05-18 04:35 | RAD_ITS ---
STUDY: X-RAY CHEST REASON FOR EXAM: Female, 42 years old. Cough TECHNIQUE: PA and lateral views of the chest. COMPARISON: August 30, 2016 chest x-ray FINDINGS: The lungs are clear and expanded. There is no demonstrated pleural abnormality. Normal size heart. There are calcified mediastinal lymph nodes. Normal visualized pulmonary arteries. Normal visualized aortic arch and descending thoracic aorta. There are diffuse degenerative changes of the visualized thoracic spine. Normal visualized ribs, clavicles, and shoulders. There is no demonstrated abnormality of the visualized soft tissue structures of the upper abdomen. RAD/Chest PA and Lateral IMPRESSION: No demonstrated acute cardiopulmonary process. Electronically Signed: Sara Harvey MD at 5:22 EDT ,
[2023-05-18] MEDS: dexAMETHasone 10 MG/ML Vial PO.IVFORM (05:02)
[2023-05-18] MEDS: guaiFENesin/Codeine 5 ML UDC 10 ML PO (05:02)
--- NOTE | 2023-05-18 05:41 | EX.ED.DYSGE1 ---
HPI History of Present Illness Chief Complaint: Cold Sx Informant: patient Narrative Narrative: Patient is a 42-year-old female with past medical history of asthma. She states multiple for members have been sick and for the past 2 days she has had nasal congestion cough sore throat and fatigue. She states that she is having difficulty sleeping secondary to her symptoms and is worried she has pneumonia and therefore comes in for evaluation [facility] Medical History (Updated 05/18/23 @ 08:[address] Sami Murdock, DO) Allergic rhinitis Cervical radiculopathy GERD (gastroesophageal reflux disease) Ovarian cyst depression Home Medications albuterol sulfate 90 mcg/actuation aerosol inhaler 1 - 2 puff inhalation Q6H PRN PRN Sob &/Or Wheezing 04/16/19 [History Last Taken Unknown] fluticasone propionate 100 mcg/actuation blister powder for inhalation 1 puff inhalation PRN PRN Sob &/Or Wheezing 04/16/19 [History Last Taken Unknown] omeprazole 20 mg capsule,delayed release 20 mg PO DAILY 04/16/19 [History Last Taken 04/23/19 11:00] ferrous gluconate 270 mg (27 mg iron) tablet 270 mg PO BID 04/24/20 [History Last Taken Unknown] escitalopram oxalate 10 mg tablet 10 mg PO DAILY 02/13/23 [History Last Taken Unknown] azelastine 137 mcg (0.1 %) nasal spray aerosol 2 spray intranasal BID #30 mL 05/18/23 [Rx Last Taken Unknown] hydrocodone-homatropine 5 mg-1.5 mg/5 mL (5 mL) oral syrup (Hycodan) 5 ml PO 4X/DAY PRN cough 7 days #140 mL 05/18/23 [Rx Last Taken Unknown] prednisone 20 mg tablet 40 mg (2 x 20 mg) PO DAILY 7 days #14 tabs 05/18/23 [Rx Last Taken Unknown] Allergy/AdvReac Type Severity Reaction Status Date / Time No Known Allergies Allergy Verified 05/18/23 03:22 Family History Grandmother Hypertension Myocardial infarction Sister bipolar Mother CVA (cerebral vascular accident) Surgical History History of tonsillectomy and adenoidectomy thyroid left fine needle [place] teeth extracted Social History (Updated 12/01/18 @ 16:20 by Blaire Cesar STATION WORKER, STATION WORKER-C) number of children: 2 current occupational status: employed current occupation: [employer] Smoking Status: Never smoker alcohol intake: never substance use type: does not use seatbelt use: always do you feel safe at home: Yes additional social history: FOB Hamzah Benavidez in [place] ROS ROS ED Constitutional Constitutional ED: Reports chills and subjective; Denies fever(s) ENT ENT ED: Reports rhinorrhea and sore throat Cardiovascular Cardiovascular: Denies chest pain Respiratory/Chest Respiratory/Chest: Reports cough; Denies dyspnea Gastrointestinal Gastrointestinal: Denies abdominal pain, diarrhea, nausea or vomiting Genitourinary Genitourinary ED: Denies dysuria Musculoskeletal Musculoskeletal: Reports myalgias Integumentary Denies rash Neurologic Neurologic: Reports headache(s) Hematologic/Lymphatic Hematologic/Lymphatic: Denies easy bleeding or easy bruising EXAM Physical Exam Const Vital Signs: 05/18/23 03:19 05/18/23 03:23 05/18/23 03:24 Temperature 98.5 F Temperature Source Temporal Pulse Rate 112 H Respiratory Rate 12 Respiratory Effort Short of Breath Short of Breath Respiratory Pattern Normal Normal Blood Pressure 142/79 H Blood Pressure Mean 100 Pulse Ox 96 Oxygen Delivery Method Room Air Room Air Positive well nourished and well developed General Appearance ED: well developed HEENT HEENT Narrative: Bilateral TMs are retracted without secondary changes to suggest infection Nasal mucosa is hyperemic and boggy with enlarged inferior nasal turbinate There is cobblestoning the posterior pharynx consistent with sinus drainage without airway edema or compromise Eyes PERRL and EOMs intact bilaterally Neck supple and no JVD Neck Narrative: Positive anterior cervical lymphadenopathy noted Chest Wall palpation of chest normal Resp normal respiratory effort and clear to auscultation bilaterally Cardio regular rate and regular rhythm Extremity normal to inspection Extremity Narrative: No asymmetric edema no pitting edema negative Homans' sign bilaterally Neuro oriented x3 and CN's II-XII intact bilaterally Sensorium / Orientation: alert Psych mental status grossly normal Skin no rashes or lesions noted MDM MDM MDM Narrative Medical decision making narrative: Patient presented to the ER afebrile and in no acute respiratory distress. Her constellation of symptoms are most consistent with a viral upper respiratory tract infection. We discussed potential testing for COVID and influenza but as she is not hypoxic or in respiratory distress this would not alter her plan of care. Therefore patient did not want these obtain. As patient could have potential pneumonia or other effusion or pneumothorax as a cause of her symptoms I did elect to perform a two-view chest x-ray. This revealed no acute lung pathology. Therefore patient to be placed on symptomatic medications and is otherwise safe for discharge as she remains in no acute respiratory distress History & Record Review Discussion w/independent historian: Patient Radiography Diagnostic Testing: Clinical Impression(s) from Imaging Studies Chest X-Ray 05/18/23 04:35 IMPRESSION: No demonstrated acute cardiopulmonary process. Electronically Signed: Sara Harvey MD at 5:22 EDT Reading Location ID and State: [facility] / [place] Tel , Service support , 2 view chest x-ray as interpreted by the emergency medicine physician reveals no acute infiltrate pneumothorax or pleural effusion Discharge Plan Triage Chief Complaint: Cold Sx ED Provider: Sami Murdock Dx/Rx/DC Orders Clinical Impression: Viral upper respiratory tract infection with cough, Asthma Instructions: ED URI, Viral, No Abx (Adult) Prescriptions: New prednisone 20 mg tablet 40 mg PO DAILY 7 Days Qty: 14 0RF azelastine 137 mcg (0.1 %) aerosol,spray 2 spray intranasal BID Qty: 30 0RF Rx Instructions: administer into each nostril hydrocodone-homatropine [Hycodan] 5-1.5 mg/5 mL (5 mL) syrup 5 ml PO 4X/DAY PRN (Reason: cough) 7 Days Qty: 140 0RF No Action fluticasone propionate 1 PUFF inhaler 1 puff inhalation PRN PRN (Reason: Sob &/Or Wheezing) omeprazole 20 MG capsule,delayed release(DR/EC) 20 mg PO DAILY albuterol sulfate 1 PUFF inhaler 1 - 2 puff inhalation Q6H PRN PRN (Reason: Sob &/Or Wheezing) ferrous gluconate 270 MG tablet 270 mg PO BID escitalopram oxalate 10 mg tablet 10 mg PO DAILY Patient Comments: TAKE 1 TABLET BY MOUTH EVERY DAY Primary Care Provider: Gianna Arredondo Referrals: Gianna Arredondo MD [Primary Care Provider] - Disposition Disposition: Home, Self Care Discharge Date/Time: 05/18/23 05:51
== END 2023-05-18 05:51 | disposition home or self-care (01) ==
PROVIDERS: Emergency Provider Emergency Medicine; PCP Internal Medicine; Visit Provider Emergency Medicine
DX: J06.9 Acute upper respiratory infection, unspecified (principal); J45.909 Unspecified asthma, uncomplicated; Z79.899 Other long term (current) drug therapy
CPT/HCPCS: 71046; 99284

== ENCOUNTER 2023-07-03 01:49 | Emergency (ER) | payer MEDICAID, SELFPAY ==
[2023-07-03 01:51] VITALS: BP 123/64; PULSE 59; RESP 16; TEMP 36.2; O2SAT 99; BMI 23.8
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
[2023-07-03] MEDS: Ibuprofen 600 MG Tablet PO (02:18)
== END 2023-07-03 02:45 | disposition home or self-care (01) ==
LOC: ED 02:11
PROVIDERS: Emergency Provider Emergency Medicine; PCP Internal Medicine; Visit Provider Emergency Medicine
DX: M43.6 Torticollis (principal); M54.2 Cervicalgia; Z79.899 Other long term (current) drug therapy
CPT/HCPCS: 99282; J7030; A4216

== ENCOUNTER → 2023-07-22 | Outpatient (CLI) | payer MEDICAID, SELFPAY ==
--- NOTE | 2023-07-22 | FLU_PTH ---
PATIENT: ADDISON PEREZ LOC: [facility]#:[id number] AGE/SX: 42/F ROOM: RE07/22/[address]: Dr. Carlita Vee MD : 1980 BED: DIS: 07/22/2023 SPEC #: [id number] RECD: 07/22/23 16:47 STATUS: KAYY REQ #: [id number] MICHELLE: 07/22/23 00:[address]: Carlita Vee DEPT: CYTOLOGY RECD BY: Alec Chavez ENTERED: 07/23/23 08:19 SP TYPE: Fluid OTHR DR: Dr. Gianna Arredondo MD Tissues: A - Thyroid gland, NOS B - Thyroid gland, NOS Procedures: Special Stain Group II Surgery Specimen Level IV Cytospin Fluid HEADER OPERATION: Fine needle aspiration left upper pole thyroid PRE-OP DIAGNOSIS: Abnormal thyroid ultrasound TISSUE SUBMITTED: A - Left upper pole thyroid fluid, B - Left upper pole thyroid x6 slides DIAGNOSIS CYTOLOGY A. Fine needle aspiration, left upper pole of thyroid nodule (cytospin and cell block): Negative for malignant cells. See comment. B. Fine needle aspiration, left upper pole of thyroid nodule (smears): Rare atypia with Hurthle cell features, Bethel Category III. See comment. AM:chau 07/24/2023 COMMENT A. The specimen contains benign follicular cells and blood. Clinical correlation is suggested. B. The [place] System for thyroid diagnostic categorization was used in the evaluation of this case. Adequate for evaluation. CYTOLOGY STUDY Slides are reviewed. CYTOLOGY GROSS A - Received is 20 ml of brown cloudy fluid labeled with the patient's name and and designated per the requisition as left upper pole thyroid. Submitted for cytology preparation including cell block. B - Received are six smears labeled with the patient's name and designated per the requisition as left upper pole thyroid. Submitted for staining. / chau 07/23/2023 TC:? CPT: 12134 x2, 01745
== END | disposition home or self-care (01) ==
LOC: LABSPEC 16:56
PROVIDERS: PCP Internal Medicine; Referring Provider Surgery; Visit Provider Surgery
DX: R93.89 Abnormal findings on diagnostic imaging of other specified body structures (principal); E04.1 Nontoxic single thyroid nodule
CPT/HCPCS: 88108; 88305; 88313